=== PATIENT | male | born 1965 | race Caucasian/White ===

== ENCOUNTER 2016-04-06 | Outpatient (CLI) | payer MEDICAID | END 2016-04-06 14:26 | disposition EMS.NT ==

== ENCOUNTER 2017-04-14 12:59 | Emergency (ER) | payer MEDICAID ==
[2017-04-14] MEDS ORDERED: HYDROmorphone 1 MG/ML SYRINGE IVP STA (13:16)
[2017-04-14] MEDS ORDERED: KETOROLAC 60 MG/2 ML VIAL IVP STA (13:16)
--- NOTE | 2017-04-14 13:19 | ED Physician Documentation ---
PD HPI DYSPNEA - Stated complaint Stated Complaint: DIFFICULTY BREATHING/UNABLE TO STAND - Chief complaint Chief Complaint: Cardiac - History obtained from History obtained from: Patient - History of Present Illness Timing - onset: Other (For the last 4 days he has had right foot pain similar to prior gout or plantar fasciitis, today he has left foot pain, it is debilitating in that now that both feet hurt he really cannot walk. He also has a day worth of productive cough with wheezing and shortness of breath but no fevers. There is no calf pain or history of cardiac or pulmonary disease.) Review of Systems Constitutional: denies: Fever, Chills Cardiac: denies: Chest pain / pressure, Palpitations, Pedal edema, Calf pain Respiratory: reports: Dyspnea, Cough, Wheezing. denies: Hemoptysis GI: denies: Abdominal Pain PD PAST MEDICAL HISTORY - Past Medical History Cardiovascular: None Respiratory: None Neuro: Peripheral neuropathy Endocrine/Autoimmune: None GI: None : None HEENT: None Psych: None Musculoskeletal: None Derm: None - Past Surgical History Past Surgical History: Yes Ortho: Spine surgery - Present Medications Home Medications: Ambulatory Orders Medication Instructions Recorded Confirmed Amitriptyline HCl 0 04/14/17 Cyclobenzaprine [Flexeril] 0 04/14/17 Doxycycline Hyclate 100 mg PO BID #14 tablet 04/14/17 HYDROcod/ACETAM 5/325 [[place] 5/325] 1 - 2 ea PO Q6H PRN #15 tablet 04/14/17 Meloxicam [Mobic] 7.5 mg PO BIDWM PRN #15 tablet 04/14/17 amLODIPine [Norvasc] 0 04/14/17 - Allergies Allergies/Adverse Reactions: Allergies Allergy/AdvReac Type Severity Reaction Status Date / Time No Known Drug Allergies Allergy Verified 11/11/14 18:35 - Living Situation Living Situation: reports: Alone Living Arrangement: reports: At home - Social History Does the pt smoke?: Yes Smoking Status: Current every day smoker Does the pt drink ETOH?: Yes Does the pt have substance abuse?: No - Family History Family history: reports: Non contributory - Immunizations Immunizations are current?: No - POLST Patient has POLST: No PD ED PE NORMAL - Vitals Vital signs reviewed: Yes (tachycardic, hypertensive) - General General: Alert and oriented X 3, No acute distress - HEENT HEENT: PERRL, EOMI - Neck Neck: Supple, no meningeal sign, No bony TTP - Cardiac Cardiac: RRR, No murmur - Respiratory Respiratory: Other (Mildly diminished and rhonchorous throughout, nonlabored) - Abdomen Abdomen: Soft, Non tender - Extremities Extremities: Other (Significant swelling especially of the dorsal lateral right foot and redness there and a lot of pain with range of motion of the foot. Left foot is grossly normal. There is no calf tenderness or swelling.) - Neuro Neuro: Alert and oriented X 3, Normal speech - Psych Psych: Normal mood, Normal affect Results - Vitals Vitals: Vital Signs - 24 hr 04/14/17 04/14/17 13:04 13:49 Temperature 36.8 C Heart Rate 112 H 100 Respiratory 18 14 Rate Blood Pressure 172/92 H 151/87 H O2 Saturation 99 93 Oxygen O2 Source Room air - EKG (time done) 1308 Rate: Rate (enter#) (102) Rhythm: Sinus tachycardia Intervals: LBBB Other comments: Other comments (Negative Sgarbossa criteria, the patient says he has never had an EKG before.) Computer interpretation: Agree with computer - Labs Labs: Laboratory Tests 04/14/17 04/14/17 04/14/17 13:20 13:20 13:20 WBC 12.1 H RBC 3.68 L Hgb 11.7 L Hct 34.7 L MCV 94.2 H MCH 31.8 H MCHC 33.7 RDW 12.8 Plt Count 246 MPV 8.9 Neut # 9.9 H Lymph # 1.0 L Mcdonald # 0.9 Eos # 0.2 Baso # 0.1 Absolute Nucleated RBC 0.00 Nucleated RBC % 0.0 ESR 90 H Sodium 135 Potassium 3.2 L Chloride 98 L Carbon Dioxide 20 L Anion Gap 17.0 H BUN 9 Creatinine 0.9 Estimated GFR (MDRD) 89 Glucose 199 H Uric Acid 8.0 H Calcium 9.6 Total Bilirubin 0.6 AST 63 H ALT 33 Alkaline Phosphatase 124 H Troponin I C-Reactive Protein 11.5 H Total Protein 8.5 H Albumin 3.9 Globulin 4.6 H Albumin/Globulin Ratio 0.8 L Lipase 20 L 04/14/17 13:20 WBC RBC Hgb Hct MCV MCH MCHC RDW Plt Count MPV Neut # Lymph # Mcdonald # Eos # Baso # Absolute Nucleated RBC Nucleated RBC % ESR Sodium Potassium Chloride Carbon Dioxide Anion Gap BUN Creatinine Estimated GFR (MDRD) Glucose Uric Acid Calcium Total Bilirubin AST ALT Alkaline Phosphatase Troponin I < 0.04 C-Reactive Protein Total Protein Albumin Globulin Albumin/Globulin Ratio Lipase - Rads (name of study) B feet XRs Radiology: EMP read contemporaneously (Periarticular erosions in the right foot consistent with a synovitis such as gout.) 2v chest Radiology: EMP read contemporaneously (NAD) PD MEDICAL DECISION MAKING - ED course ED course: 51-year-old gentleman presents with bilateral foot pain, likely gout of the tarsal metatarsals which is corroborated by findings on x-ray and elevated uric acid level. He also has other lab abnormalities, he does drink heavily, more heavily than he told the nurse. This probably explains the hypokalemia and mild transaminitis. He was advised to cut back on alcohol. He also complains of bronchitis type symptoms, that has been going on for about 4 weeks so a trial of antibiotics is reasonable especially with elevated inflammatory markers present. Departure - Departure Disposition: 01 Home, Self Care Clinical Impression: Elevated liver enzymes, Left bundle branch block, Bronchitis Gout Qualifiers: Gout site: multiple sites Gout etiology: idiopathic Chronicity: acute Qualified Code(s): M10.09 - Idiopathic gout, multiple sites Condition: Good Record reviewed to determine appropriate education?: Yes Instructions: ED Arthritis Gout, ED Diet Gout, ED Bronchitis Asthmatic Prescriptions: Doxycycline Hyclate 100 mg PO BID #14 tablet HYDROcod/ACETAM 5/325 [[place] 5/325] 1 - 2 ea PO Q6H PRN #15 tablet PRN Reason: Pain Meloxicam [Mobic] 7.5 mg PO BIDWM PRN #15 tablet PRN Reason: Pain Comments: Return if worse or if new symptoms develop, especially fever. Or if pain is uncontrolled. Follow-up with your physician, next available appointment to discuss further treatments for gout, consideration for allopurinol starting in 4 -6 weeks. Also discussed with her That we found a left bundle branch block on your EKG today of unclear chronicity, no prior EKGs are available.
[2017-04-14 13:56] LABS: ALBUMIN 3.9 g/dL (3.2-5.5); ALBUMIN/GLOBULIN RATIO 0.8 (1.0-2.2); BILIRUBIN,TOTAL 0.6 mg/dL (0.2-1.0); CALCIUM 9.6 mg/dL (8.5-10.3); CREATININE 0.9 mg/dL (0.6-1.2); CRP - C-REACTIVE PROTEIN 11.5 mg/dL (0-1.0); TOTAL PROTEIN 8.5 g/dL (6.7-8.2)
[2017-04-14 14:06] LABS: BASOPHILS # (AUTO) 0.1 10^3/uL (0.0-0.1); BASOPHILS % (AUTO) 1.1 %; EOSINOPHILS # (AUTO) 0.2 10^3/uL (0.0-0.7); EOSINOPHILS % (AUTO) 1.5 %; HGB - HEMOGLOBIN 11.7 g/dL (14.0-18.0); LYMPHOCYTES % (AUTO) 8.3 %; MEAN CORPUSCULAR HEMOGLOBIN 31.8 pg (27.0-31.0); MEAN CORPUSCULAR HGB CONC 33.7 g/dL (32.0-36.0); MEAN CORPUSCULAR VOLUME 94.2 fL (80.0-94.0); MEAN PLATELET VOLUME 8.9 fL (7.4-11.4); MONOCYTES # (AUTO) 0.9 10^3/uL (0.0-1.0); NEUTROPHILS # (AUTO) 9.9 10^3/uL (1.5-6.6); NEUTROPHILS % (AUTO) 82.1 %; PLT - PLATELET COUNT 246 10^3/uL (130-450); RED BLOOD COUNT 3.68 10^6/uL (4.70-6.10); RED CELL DISTRIBUTION WIDTH 12.8 % (12.0-15.0); WHITE BLOOD COUNT 12.1 x10^3/uL (4.8-10.8)
--- NOTE | 2017-04-14 14:12 | XRAY Preliminary Report ---
Exam: XR FOOT 3 VIEW BILAT IMPRESSION: 1. No acute bony abnormality. 2. Periarticular erosions at the right third and fourth tarsometatarsal joints as well as at the left fifth metatarsal styloid. These nonspecific findings would be consistent with a synovitis such as mi ght be seen with gout. 3. Moderate right and mild left foot edema. [facility] SITE ID: [id number]
--- NOTE | 2017-04-14 14:14 | XRAY Preliminary Report ---
Exam: XR CHEST 2 VIEW X-RAY IMPRESSION: Normal 2-view chest radiography. [facility] SITE ID: [id number]
[2017-04-14] MEDS ORDERED: POTASSIUM CHLORIDE 20 MEQ TABLET PO STA (14:18)
--- NOTE | 2017-04-14 14:20 | XRAY Report ---
EXAM: CHEST RADIOGRAPHY EXAM DATE: 04/14/2017 01:48 PM. CLINICAL HISTORY: Dyspnea, cough for several weeks. COMPARISON: None. TECHNIQUE: 2 views. FINDINGS: Lungs/Pleura: No focal opacities evident. No pleural effusion. No pneumothorax. Normal volumes. Mediastinum: Heart and mediastinal contours are unremarkable. Other: None. IMPRESSION: Normal 2-view chest radiography. [facility] Referring Provider Line: [phone] SITE ID: [id number]
--- NOTE | 2017-04-14 14:20 | XRAY Report ---
EXAMS: 1. RIGHT FOOT RADIOGRAPHY 2. LEFT FOOT RADIOGRAPHY EXAM DATE: 04/14/2017 01:49 PM. CLINICAL HISTORY: Bilateral foot pain, right greater than left, erythema and edema. History of gout. No precipitating injury. COMPARISON: None. TECHNIQUE: 3 views each foot. FINDINGS: Right: Bones: Normal. No fractures or bone lesions. Joints: Several 6 mm periarticular erosions with small rim of sclerosis involving the bases of the th ird and fourth metatarsals. No ankle effusion. Soft Tissues: Moderate diffuse edema. Left: Bones: Normal. No fractures or bone lesions. Joints: Several 4 mm and smaller subcortical erosions with sclerotic rims of the styloid process fift h metatarsal. No ankle effusion. Soft Tissues: Mild forefoot edema. IMPRESSION: 1. No acute bony abnormality. 2. Periarticular erosions at the right third and fourth tarsometatarsal joints as well as at the left fifth metatarsal styloid. These nonspecific findings would be consistent with synovitis such as migh t be seen with gout. 3. Moderate right and mild left foot edema. [facility] Referring Provider Line: [phone] SITE ID: [id number]
[2017-04-14] MEDS ORDERED: COLCHICINE 0.6 MG TABLET PO STA (14:42)
[2017-04-14] MEDS ORDERED: DOXYCYCLINE 100 MG TABLET PO STA (14:48)
[2017-04-14 15:13] VITALS: BP 139/88
== END 2017-04-14 15:16 | disposition home or self-care (01) ==
LOC: ED 12:59
DX: I44.7 Left bundle-branch block, unspecified (principal); R94.31 Abnormal electrocardiogram [ECG] [EKG]; J40 Bronchitis, not specified as acute or chronic; M10.072 Idiopathic gout, left ankle and foot; M10.071 Idiopathic gout, right ankle and foot; R74.8 Abnormal levels of other serum enzymes; G62.9 Polyneuropathy, unspecified; F17.200 Nicotine dependence, unspecified, uncomplicated
CPT/HCPCS: 36415; 71046; 73630; 80053; 83690; 84484; 84550; 85025; 85651; 86140; 93005; 96374; 96375; 99283; 99284; A9270; J1170

== ENCOUNTER 2017-05-11 17:04 | Emergency (ER) | payer MEDICAID ==
[2017-05-11] MEDS ORDERED: HYDROcod/ACETAM 5/325 MG TABLET PO STA (19:19)
[2017-05-11] MEDS ORDERED: MELOXICAM 7.5 MG TABLET PO STA (19:19)
--- NOTE | 2017-05-11 19:22 | ED Physician Documentation ---
PD HPI LOWER EXT INJURY - Stated complaint Stated Complaint: L FOOT PX/TINGLING - Chief complaint Chief Complaint: Ext Problem - History obtained from History obtained from: Patient - History of Present Illness PD HPI LOW EXT INJURY LOCATION: Other (51-year-old gentleman with history of gout presents with 2-3 days of increasingly painful left ankle with some numbness in the foot distal to this. He can barely walk. There is no associated fever or other joint pain currently.) Review of Systems Constitutional: denies: Fever, Chills Respiratory: reports: Reviewed and negative GI: reports: Reviewed and negative : reports: Reviewed and negative PD PAST MEDICAL HISTORY - Past Medical History Cardiovascular: None Respiratory: None Neuro: Peripheral neuropathy Endocrine/Autoimmune: None GI: None : None HEENT: None Psych: None Musculoskeletal: None Derm: None - Past Surgical History Past Surgical History: Yes Ortho: Spine surgery - Present Medications Home Medications: Ambulatory Orders Medication Instructions Recorded Confirmed Amitriptyline HCl 0 04/14/17 Cyclobenzaprine [Flexeril] 0 04/14/17 Doxycycline Hyclate 100 mg PO BID #14 tablet 04/14/17 HYDROcod/ACETAM 5/325 [[place] 5/325] 1 - 2 ea PO Q6H PRN #15 tablet 04/14/17 Meloxicam [Mobic] 7.5 mg PO BIDWM PRN #15 tablet 04/14/17 amLODIPine [Norvasc] 0 04/14/17 HYDROcod/ACETAM 5/325 [[place] 5/325] 1 - 2 ea PO Q6H PRN #15 tablet 05/11/17 Meloxicam [Mobic] 7.5 mg PO BIDWM PRN #15 tablet 05/11/17 - Allergies Allergies/Adverse Reactions: Allergies Allergy/AdvReac Type Severity Reaction Status Date / Time No Known Drug Allergies Allergy Verified 05/11/17 17:29 - Social History Does the pt smoke?: Yes Smoking Status: Current every day smoker Does the pt drink ETOH?: Yes Does the pt have substance abuse?: No - Immunizations Immunizations are current?: No - POLST Patient has POLST: No PD ED PE NORMAL - Vitals Vital signs reviewed: Yes - General General: Alert and oriented X 3, No acute distress - Extremities Extremities: Other (Right ankle is warm and he has a lot of pain with flexion but not extension. There is no neurovascular compromise in the foot.) - Neuro Neuro: Alert and oriented X 3, Normal speech - Psych Psych: Normal mood, Normal affect Results - Vitals Vitals: Vital Signs - 24 hr 05/11/17 05/11/17 05/11/17 17:25 19:24 19:40 Temperature 37.1 C 37.8 C H Heart Rate 105 H 78 84 Respiratory 18 17 16 Rate Blood Pressure 139/92 H 155/84 H O2 Saturation 100 97 Oxygen O2 Source Room air - EKG (time done) 1934 Rate: Rate (enter#) (85) Rhythm: NSR Intervals: LBBB Computer interpretation: Agree with computer PD MEDICAL DECISION MAKING - ED course ED course: This gentleman with a history of gout is afebrile and presents with apparent gout flare in the left ankle for which he is treated, he requested the same medications he got last time. Departure - Departure Clinical Impression: Gout Qualifiers: Gout site: ankle Gout etiology: idiopathic Chronicity: acute Laterality: left Qualified Code(s): M10.072 - Idiopathic gout, left ankle and foot Condition: Good Record reviewed to determine appropriate education?: Yes Instructions: ED Arthritis Gout, ED Diet Gout Prescriptions: HYDROcod/ACETAM 5/325 [[place] 5/325] 1 - 2 ea PO Q6H PRN #15 tablet PRN Reason: Pain Meloxicam [Mobic] 7.5 mg PO BIDWM PRN #15 tablet PRN Reason: Pain Comments: Talk with your doctor about starting allopurinol in 6-8 weeks to prevent further gout flares.
[2017-05-11 19:41] VITALS: BP 155/84
== END 2017-05-11 20:00 | disposition home or self-care (01) ==
LOC: ED 17:04
DX: M10.072 Idiopathic gout, left ankle and foot (principal); M10.9 Gout, unspecified; G62.9 Polyneuropathy, unspecified; I44.7 Left bundle-branch block, unspecified; F17.200 Nicotine dependence, unspecified, uncomplicated
CPT/HCPCS: 93005; 99283; A9270

== ENCOUNTER 2017-07-07 12:48 | Emergency (ER) | payer MEDICAID ==
[2017-07-07] MEDS ORDERED: KETOROLAC 60 MG/2 ML VIAL IM STA (13:55)
[2017-07-07] MEDS ORDERED: HYDROmorphone 2 MG/ML VIAL IM STA (13:55)
--- NOTE | 2017-07-07 13:57 | ED Physician Documentation ---
History of Present Illness - Stated complaint Stated Complaint: FOOT PX - Chief complaint Chief Complaint: Ext Problem - History obtained from History obtained from: Patient - History of Present Illness Timing: Other (51-year-old gentleman with recurrent gout presents with a couple days worth of pain especially the left foot consistent with prior gout, extreme sensitivity there. No fevers or chills.) Review of Systems Constitutional: denies: Fever, Chills GI: denies: Abdominal Pain, Nausea, Diarrhea : denies: Dysuria PD PAST MEDICAL HISTORY - Past Medical History Cardiovascular: None Respiratory: None Neuro: Peripheral neuropathy Endocrine/Autoimmune: None GI: None : None HEENT: None Psych: None Musculoskeletal: None Derm: None - Past Surgical History Past Surgical History: Yes Ortho: Spine surgery - Present Medications Home Medications: Ambulatory Orders Medication Instructions Recorded Confirmed Amitriptyline HCl 0 04/14/17 Cyclobenzaprine [Flexeril] 0 04/14/17 Doxycycline Hyclate 100 mg PO BID #14 tablet 04/14/17 HYDROcod/ACETAM 5/325 [[place] 5/325] 1 - 2 ea PO Q6H PRN #15 tablet 04/14/17 Meloxicam [Mobic] 7.5 mg PO BIDWM PRN #15 tablet 04/14/17 amLODIPine [Norvasc] 0 04/14/17 HYDROcod/ACETAM 5/325 [[place] 5/325] 1 - 2 ea PO Q6H PRN #15 tablet 05/11/17 Meloxicam [Mobic] 7.5 mg PO BIDWM PRN #15 tablet 05/11/17 HYDROcod/ACETAM 5/325 [[place] 5/325] 1 - 2 ea PO Q6H PRN #15 tablet 07/07/17 Indomethacin [Indocin] 25 mg PO BIDWM #10 capsule 07/07/17 - Allergies Allergies/Adverse Reactions: Allergies Allergy/AdvReac Type Severity Reaction Status Date / Time No Known Drug Allergies Allergy Verified 05/11/17 17:29 - Social History Does the pt smoke?: Yes Smoking Status: Current every day smoker Does the pt drink ETOH?: Yes Does the pt have substance abuse?: No - Immunizations Immunizations are current?: No - POLST Patient has POLST: No PD ED PE NORMAL - Vitals Vital signs reviewed: Yes - General General: Alert and oriented X 3, No acute distress - Extremities Extremities: Other (Left foot is warm but not really hot or red, especially pain and tenderness of the ankle and First MTP.) - Neuro Neuro: Alert and oriented X 3, Normal speech Results - Vitals Vitals: Vital Signs - 24 hr 07/07/17 12:54 Temperature 36.8 C Heart Rate 107 H Respiratory 18 Rate Blood Pressure 148/98 H O2 Saturation 100 Oxygen O2 Source Room air Departure - Departure Disposition: 01 Home, Self Care Clinical Impression: Gout Qualifiers: Gout site: foot Gout etiology: idiopathic Chronicity: acute Laterality: left Qualified Code(s): M10.072 - Idiopathic gout, left ankle and foot Condition: Good Record reviewed to determine appropriate education?: Yes Instructions: Gout, Gout Eat Prevent Prescriptions: HYDROcod/ACETAM 5/325 [[place] 5/325] 1 - 2 ea PO Q6H PRN #15 tablet PRN Reason: Pain Indomethacin [Indocin] 25 mg PO BIDWM #10 capsule Comments: Call your doctor to arrange a follow-up appointment, make the next available appointment. In the interim, return anytime if worse or if new symptoms develop. Do not drink or drive while taking narcotic pain medication. Note that many narcotic pain relievers also contain Tylenol/acetaminophen. Please ensure that your total dose of acetaminophen from all sources does not exceed 3 g (3000 mg) per day. You may get constipated while on this medication. Take a stool softener such as Colace twice a day while you are on it. Also add an [id number] laxative such as senna or MiraLAX on any day that you do not have a bowel movement. If you received a narcotic pain medication or sedative while in the emergency department, do not drive for the next 24 hours. Your blood pressure was elevated today on check into the emergency department. This does not mean that you have hypertension, it is a common phenomenon to come to the emergency department and have elevated blood pressure. I recommend that you see your primary care physician within the week to have it rechecked when you are feeling better.
[2017-07-07 14:45] VITALS: BP 146/91
== END 2017-07-07 14:51 | disposition home or self-care (01) ==
LOC: ED 12:48
DX: M10.072 Idiopathic gout, left ankle and foot (principal); G62.9 Polyneuropathy, unspecified; R03.0 Elevated blood-pressure reading, without diagnosis of hypertension; F17.200 Nicotine dependence, unspecified, uncomplicated
CPT/HCPCS: 96372; 99283; J1170

== ENCOUNTER 2017-10-15 17:12 | Emergency (ER) | payer MEDICAID ==
[2017-10-15 17:28] VITALS: BP 136/78
[2017-10-15] MEDS ORDERED: LIDOCAINE 1%-EPI 1:100000 30 ML MDV TD STA (17:42)
--- NOTE | 2017-10-15 17:45 | ED Physician Documentation ---
History of Present Illness - Stated complaint Stated Complaint: LEFT EYEBROW LAC - Chief complaint Chief Complaint: Laceration - Additonal information Additional information: hx from pt 51 male lost balance weed whacking and fell suffering a lac to L eyebrow no LOC no CHEN no neck pain (prior fusion but did not reinjure it today) no new numbness or weakness (has pre-existing L arm numbness) no vision changes no blood thinners Review of Systems Ears: denies: Drainage/discharge Nose: denies: Epistaxis Musculoskeletal: denies: Neck pain Neurologic: reports: Head injury. denies: Focal weakness, Numbness (none new), Headache Endocrine: denies: Easy bruising / bleeding PD PAST MEDICAL HISTORY - Past Medical History Cardiovascular: None Respiratory: None Endocrine/Autoimmune: None GI: None : None HEENT: None Psych: None Musculoskeletal: None Derm: None - Past Surgical History Past Surgical History: Yes Ortho: Spine surgery - Present Medications Home Medications: Ambulatory Orders Medication Instructions Recorded Confirmed No Known Home Medications [No 10/15/17 10/15/17 Known Home Medications] - Allergies Allergies/Adverse Reactions: Allergies Allergy/AdvReac Type Severity Reaction Status Date / Time No Known Drug Allergies Allergy Verified 10/15/17 17:23 - Social History Does the pt smoke?: Yes Smoking Status: Current every day smoker Does the pt drink ETOH?: Yes Does the pt have substance abuse?: No - Immunizations Immunizations are current?: No - POLST Patient has POLST: No PD ED PE NORMAL - Vitals Vital signs reviewed: Yes - Neck Neck: No bony TTP - Cardiac Cardiac: RRR - Respiratory Respiratory: No respiratory distress, Clear bilaterally - Derm Derm: Other (3 cm lac through L eyebrow, no bony orbit TTP, EOMI no proptosis, no hyphema) - Neuro Neuro: Alert and oriented X 3, purchasing and fiscal clerk 2-12 intact, No motor deficit, Normal speech. No: No sensory deficit (per pt baseline) Eye Opening: Spontaneous Motor: Obeys Commands Verbal: Oriented GCS Score: 15 Results - Vitals Vitals: Vital Signs - 24 hr 10/15/17 17:20 Temperature 36.6 C Heart Rate 101 H Respiratory 16 Rate Blood Pressure 136/78 H O2 Saturation 97 Oxygen O2 Source Room air Procedures - Laceration (location) eyebrow Length in cm: 3 Wound type: Linear Neurovascular status: Sensory intact, Motor intact Tendon involvement: Tendon intact Anesthesia: Lidocaine 1% with epi Wound Preparation: Irrigated copiously NS (by nursing), Wound explored, To the base. No: FB identified Skin layer closure: Nylon, Interrupted, Size #-0 - enter number (5), Sutures - enter # (6) Other: Patient tolerated well, No complications, Neurovascular intact, Dressing applied, Tetanus UTD Complexity: Simple PD MEDICAL DECISION MAKING - Sepsis Event Vital Signs: Vital Signs - 24 hr 10/15/17 17:20 Temperature 36.6 C Heart Rate 101 H Respiratory 16 Rate Blood Pressure 136/78 H O2 Saturation 97 Oxygen O2 Source Room air Departure - Departure Disposition: 01 Home, Self Care Clinical Impression: Laceration Condition: Good Instructions: ED Laceration Facial Sutr Tape, ED Head Injury Closed, ED Scar Tips to Minimize Comments: Keep the wound clean - may shower but no swimming Apply antibiotic ointment twice a day Sutures out 5-7 days - your PMD can probably do this, else come back to the ER Your brain and spine seems fine and I don't think you need a CT scanbut please read over the head injury precautions and return if worse in any way
== END 2017-10-15 19:31 | disposition home or self-care (01) ==
LOC: ED 17:12
DX: S01.112A Laceration without foreign body of left eyelid and periocular area, initial encounter (principal); W18.30XA Fall on same level, unspecified, initial encounter; Y93.H2 Activity, gardening and landscaping; Y92.096 Garden or yard of other non-institutional residence as the place of occurrence of the external cause; F17.200 Nicotine dependence, unspecified, uncomplicated
CPT/HCPCS: 12013; 99281; 99283

== ENCOUNTER 2017-10-22 12:20 | Emergency (ER) | payer MEDICAID ==
[2017-10-22 12:34] VITALS: BP 164/88
--- NOTE | 2017-10-22 12:54 | ED Physician Documentation ---
PD HPI WOUND RECHECK - Stated complaint Stated Complaint: LF EYE BROW SUTURE REMOVAL - Chief complaint Chief Complaint: General - Histroy obtained from History obtained from: Patient - History of Present Illness Location: Face Timing - onset: How many days ago (7) Associated symptoms: No: Fever, Redness, Swelling, Drainage, Pain Similar symptoms before: Diagnosis (laceration) Recently seen: Emergency Dept (7 days ago) - Additional information Additional information: 51-year-old male fell while weed eating [address] Reveles here for some sutures to his left eyebrow and is here now today for suture removal. He has had no complaints and the wound appears to be healing well. Review of Systems Constitutional: denies: Fever Eyes: denies: Decreased vision Ears: denies: Ear pain Nose: denies: Congestion Throat: denies: Sore throat Respiratory: denies: Cough GI: denies: Vomiting Skin: reports: Laceration (s). denies: Rash Musculoskeletal: denies: Neck pain, Back pain Neurologic: denies: Generalized weakness, Focal weakness, Numbness PD PAST MEDICAL HISTORY - Past Medical History Past Medical History: No Cardiovascular: None Respiratory: None Endocrine/Autoimmune: None GI: None : None HEENT: None Psych: None Musculoskeletal: None Derm: None - Past Surgical History Past Surgical History: Yes Ortho: Spine surgery - Present Medications Home Medications: Ambulatory Orders Medication Instructions Recorded Confirmed No Known Home Medications [No 10/15/17 10/15/17 Known Home Medications] - Allergies Allergies/Adverse Reactions: Allergies Allergy/AdvReac Type Severity Reaction Status Date / Time No Known Drug Allergies Allergy Verified 10/22/17 12:33 - Social History Does the pt smoke?: Yes Smoking Status: Current every day smoker Does the pt drink ETOH?: Yes Does the pt have substance abuse?: No - Immunizations Immunizations are current?: Yes Immunizations: TDAP current <10years - POLST Patient has POLST: No PD ED PE NORMAL - Vitals Vital signs reviewed: Yes (hypertensive) - General General: Alert and oriented X 3, No acute distress, Well developed/nourished - HEENT HEENT: PERRL, EOMI, Other (There is a healing laceration to the left eyebrow without signs of inflammation) - Respiratory Respiratory: No respiratory distress - Neuro Neuro: Alert and oriented X 3, community recreation coordinator 2-12 intact, No motor deficit, No sensory deficit, Normal speech Eye Opening: Spontaneous Motor: Obeys Commands Verbal: Oriented GCS Score: 15 - Psych Psych: Normal mood, Normal affect Results - Vitals Vitals: Vital Signs - 24 hr 10/22/17 12:31 Temperature 36.8 C Heart Rate 91 Respiratory 20 Rate Blood Pressure 164/88 H O2 Saturation 98 Oxygen O2 Source Room air Procedures - Suture/staple Removal (location) left eyebrow Suture/staple removal: # sutures, No complications, Other (placed steri strips) PD MEDICAL DECISION MAKING - ED course Complexity details: reviewed old records, considered differential, d/w patient ED course: 51-year-old male with a healing laceration to left eyebrow has a sutures removed and Steri-Strips placed. Tolerates this well expect complete recovery. - Sepsis Event Vital Signs: Vital Signs - 24 hr 10/22/17 12:31 Temperature 36.8 C Heart Rate 91 Respiratory 20 Rate Blood Pressure 164/88 H O2 Saturation 98 Oxygen O2 Source Room air Departure - Departure Disposition: 01 Home, Self Care Clinical Impression: Encounter for removal of sutures Condition: Stable
== END 2017-10-22 12:57 | disposition home or self-care (01) ==
LOC: ED 12:20
DX: S01.112D Laceration without foreign body of left eyelid and periocular area, subsequent encounter (principal); X58.XXXD Exposure to other specified factors, subsequent encounter; F17.209 Nicotine dependence, unspecified, with unspecified nicotine-induced disorders
CPT/HCPCS: 99282

== ENCOUNTER 2018-02-06 08:00 | Outpatient (CLI) | payer MEDICAID ==
[2018-02-06 18:54] LABS: BASOPHILS # (AUTO) 0.1 10^3/uL (0.0-0.1); BASOPHILS % (AUTO) 1.1 %; EOSINOPHILS # (AUTO) 0.1 10^3/uL (0.0-0.7); EOSINOPHILS % (AUTO) 1.2 %; HGB - HEMOGLOBIN 13.8 g/dL (14.0-18.0); LYMPHOCYTES # (AUTO) 1.4 10^3/uL (1.5-3.5); LYMPHOCYTES % (AUTO) 15.5 %; MEAN CORPUSCULAR HEMOGLOBIN 32.8 pg (27.0-31.0); MEAN CORPUSCULAR HGB CONC 33.5 g/dL (32.0-36.0); MEAN CORPUSCULAR VOLUME 97.8 fL (80.0-94.0); MEAN PLATELET VOLUME 9.8 fL (7.4-11.4); MONOCYTES # (AUTO) 0.4 10^3/uL (0.0-1.0); MONOCYTES % (AUTO) 4.5 %; NEUTROPHILS # (AUTO) 7.1 10^3/uL (1.5-6.6); NEUTROPHILS % (AUTO) 77.7 %; PLT - PLATELET COUNT 319 10^3/uL (130-450); RED BLOOD COUNT 4.21 10^6/uL (4.70-6.10); WHITE BLOOD COUNT 9.1 x10^3/uL (4.8-10.8)
[2018-02-06 19:16] LABS: ALBUMIN 4.5 g/dL (3.2-5.5); ALBUMIN/GLOBULIN RATIO 1.3 (1.0-2.2); ALKALINE PHOSPHATASE 131 IU/L (42-121); ALT ALANINE AMINOTRANSFERASE 57 IU/L (10-60); AST ASPARTATE AMINOTRANSFERASE 62 IU/L (10-42); BILIRUBIN,TOTAL 0.9 mg/dL (0.2-1.0); BUN - BLOOD UREA NITROGEN 8 mg/dL (6-20); CALCIUM 9.2 mg/dL (8.5-10.3); CARBON DIOXIDE - CO2 21 mmol/L (21-32); CHLORIDE 104 mmol/L (101-111); CHOLESTEROL 239 mg/dL; GFR - MDRD 78 (>89); GLUCOSE 179 mg/dL (70-100); HDL CHOLESTEROL 48 mg/dL; SODIUM 136 mmol/L (135-145); TOTAL PROTEIN 8.1 g/dL (6.7-8.2)
[2018-02-06 19:37] LABS: LDL CHOLESTEROL,DIRECT 90 mg/dL; LDLD/HDL RATIO 1.9 (<3.6)
== END 2018-02-06 23:59 | disposition home or self-care (01) ==
LOC: LAB.N 08:00
PROVIDERS: ATTEND Nurse Practitioner Gerontology
DX: Z13.9 Encounter for screening, unspecified (principal); I10 Essential (primary) hypertension; F10.20 Alcohol dependence, uncomplicated
CPT/HCPCS: 36415; 80053; 80061; 83721; 84443; 85025

== ENCOUNTER 2018-02-16 10:31 | Outpatient (CLI) | payer MEDICAID ==
[2018-02-16 15:46] LABS: HB2 TOTAL 13.1 g/dL; HEMOGLOBIN A1C 0.63 g/dL; HEMOGLOBIN A1C % 6.6 % (4.6-6.2)
== END 2018-02-16 23:59 | disposition home or self-care (01) ==
LOC: LAB.N 10:31
PROVIDERS: ATTEND Nurse Practitioner Gerontology
DX: F10.20 Alcohol dependence, uncomplicated (principal); E11.9 Type 2 diabetes mellitus without complications
CPT/HCPCS: 36415; 82607; 83036

== ENCOUNTER 2018-06-09 11:27 | Emergency (ER) | payer MEDICAID, MEDICARE ==
[2018-06-09 11:38] VITALS: BP 142/85
[2018-06-09] MEDS ORDERED: DEXAMETHASONE 10 MG/ML VIAL PO STA (11:52)
[2018-06-09] MEDS ORDERED: KETOROLAC 60 MG/2 ML VIAL IM STA (11:52)
--- NOTE | 2018-06-09 11:59 | ED Physician Documentation ---
PD HPI BACK PAIN - Stated complaint Stated Complaint: BACK PX - Chief complaint Chief Complaint: Back Pain - History obtained from History obtained from: Patient - History of Present Illness Timing - onset: Chronic Timing - duration: Years (3) Timing - details: Gradual onset Pain level max: 8 Pain level now: 8 Location: Lower, Right, Left Quality: Pain, Spasm, Sharp, Similar to prior episodes Associated symptoms: No: Fever, Weakness, Numbness, Incontinent of urine, Unable to urinate, Hematuria, Incontinent of stool Improves with: Rest Worsened by: Movement, Lifting, Twisting, Palpation Contributing factors: Other (has been sleeping in his jeep). No: Lifting, Twisting, Trauma, Anticoagulated, Cancer, IVDA Similar symptoms before: Diagnosis (chronic low back pain s/p work injury 3 years ago.) Recently seen: Not recently seen Review of Systems Ten Systems: 10 systems reviewed and negative Constitutional: denies: Fever, Chills Nose: denies: Rhinorrhea / runny nose, Congestion Throat: denies: Sore throat Cardiac: denies: Chest pain / pressure Respiratory: denies: Cough GI: denies: Abdominal Pain, Nausea, Vomiting, Diarrhea : denies: Dysuria, Frequency, Hesitancy, Incontinent Skin: denies: Rash Musculoskeletal: denies: Neck pain Neurologic: denies: Focal weakness, Numbness PD PAST MEDICAL HISTORY - Past Medical History Cardiovascular: None Respiratory: None Endocrine/Autoimmune: None GI: None : None HEENT: None Psych: None Musculoskeletal: None Derm: None - Past Surgical History Past Surgical History: Yes Ortho: Spine surgery - Present Medications Home Medications: Ambulatory Orders Medication Instructions Recorded Confirmed Amitriptyline [Elavil] 10 mg PO 06/09/18 06/09/18 Cyclobenzaprine [Flexeril] 10 mg PO TID PRN #20 tablet 06/09/18 Hydrocodone/Acetaminophen 1 - 2 each PO Q6H PRN #14 tablet 06/09/18 [Hydrocodon-Acetaminophen 5-325] Lisinopril 40 mg PO 06/09/18 Meloxicam [Mobic] 15 mg PO DAILY PRN #20 tablet 06/09/18 metFORMIN [Glucophage] 500 mg PO BIDWM 06/09/18 06/09/18 predniSONE [Deltasone] 10 mg PO [id number] #42 tab 06/09/18 - Allergies Allergies/Adverse Reactions: Allergies Allergy/AdvReac Type Severity Reaction Status Date / Time No Known Drug Allergies Allergy Verified 06/09/18 11:33 - Social History Does the pt smoke?: Yes Smoking Status: Current every day smoker Does the pt drink ETOH?: Yes Does the pt have substance abuse?: No - Immunizations Immunizations are current?: Yes Immunizations: TDAP current <10years - POLST Patient has POLST: No PD ED PE NORMAL - Vitals Vital signs reviewed: Yes - General General: Alert and oriented X 3, No acute distress, Well developed/nourished - HEENT HEENT: PERRL, Moist mucous membranes - Neck Neck: Supple, no meningeal sign - Cardiac Cardiac: RRR - Respiratory Respiratory: No respiratory distress, Clear bilaterally - Abdomen Abdomen: Soft, Non tender, Non distended - Back Back: No spinal TTP (No midline tenderness to palpation or percussion. There is paraspinal spasm bilateral low lumbar) - Derm Derm: Warm and dry - Extremities Extremities: Normal ROM s pain, No edema, No calf tenderness / cord, Other (Normal bilateral lower extremity patellar and ankle jerk reflexes. Normal great toe extension bilaterally. no saddle anesthesia) - Neuro Neuro: Alert and oriented X 3, No motor deficit, No sensory deficit - Psych Psych: Normal mood, Normal affect Results - Vitals Vitals: Vital Signs - 24 hr 06/09/18 11:31 Temperature 37 C Heart Rate 115 H Respiratory 20 Rate Blood Pressure 142/85 H O2 Saturation 100 Oxygen O2 Source Room air PD MEDICAL DECISION MAKING - ED course Complexity details: considered differential (No cauda equina, no spinal epidural abscess, no fracture, no aortic dissection or evidence of aneursym rupture), d/w patient ED course: Patient presents to the emergency department with what appears to be recurrent sciatica. Will place on pain medication for home and follow-up with his doctor. We will also place on steroids. Ambulating well in the emergency department. No evidence of cauda equina. No trauma. Patient counseled regarding signs and symptoms for which I believe and urgent re-evaluation would be necessary. Patient with good understanding of and agreement to plan and is comfortable going home at this time This document was made in part using voice recognition software. While efforts are made to proofread this document, sound alike and grammatical errors may occur. Departure - Departure Disposition: Home, Self Care Clinical Impression: Sciatica Qualifiers: Laterality: unspecified laterality Qualified Code(s): M54.30 - Sciatica, unspecified side Condition: Good Instructions: ED Sciatica Follow-Up: Valery Walter ARNP [Primary Care Provider] - Within 1 week Prescriptions: Cyclobenzaprine [Flexeril] 10 mg PO TID PRN #20 tablet PRN Reason: Spasms Hydrocodone/Acetaminophen [Hydrocodon-Acetaminophen 5-325] 1 - 2 each PO Q6H PRN #14 tablet PRN Reason: pain Meloxicam [Mobic] 15 mg PO DAILY PRN #20 tablet PRN Reason: pain predniSONE [Deltasone] 10 mg PO [id number] #42 tab Comments: Use the medications as prescribed. Follow-up with your doctor for further care. You may benefit from a repeat MRI and/or physical therapy on your back. Do not drink alcohol or drive while on narcotic pain medicine. Note that many narcotic pain relievers also contain tylenol/acetaminophen. Please ensure that your total dose of acetaminophen from all sources does not exceed 3 grams (3000mg) per day. You may constipated on this medication, take a stool softener such as "Colace" twice a day while you are on it. Also recommend a smaa-ide-khlqwsq laxative such as senna or MiraLAX any day that you do not have a bowel movement. If you received narcotic pain medication in the emergency department, do not drive or operate machinery for the next 24 hours. Discharge Date/Time: 06/09/18 12:08
[2018-06-09] MEDS ORDERED: CHERRY SYRUP 10 ML UDC PO ONE (12:00)
== END 2018-06-09 12:08 | disposition home or self-care (01) ==
LOC: ED 11:27
DX: M54.40 Lumbago with sciatica, unspecified side (principal); F17.200 Nicotine dependence, unspecified, uncomplicated
CPT/HCPCS: 96372; 99283; A9270

== ENCOUNTER 2018-09-21 17:58 | Outpatient (CLI) | payer OTHER, MEDICARE, MEDICAID ==
--- NOTE | 2018-09-22 15:36 | MRI Report ---
Reason: ROTATOR CUFF SYNDROME,LEFT Procedure Date: 09/21/2018 Accession Number: [id number] / [id number] Procedure: MRI - Shoulder LT W/O CPT Code: FULL RESULT: EXAM: LEFT SHOULDER MRI WITHOUT CONTRAST EXAM DATE: 09/21/2018 07:21 PM. CLINICAL HISTORY: Rotator cuff syndrome, left. COMPARISON: None. TECHNIQUE: Multiplanar, multisequence T1-weighted and fluid-sensitive sequences of the shoulder without contrast. Other: None. FINDINGS: Rotator Cuff: There is moderate thickening and increased T2 signal involving distal fibers of the infraspinatus and some posterior fibers of the supraspinatus. No rotator cuff tear identified. No significant rotator cuff muscle atrophy. Long Head Biceps Tendon: Intact biceps tenodesis. Labrum: Some blunting and truncation of the superior labrum. No discrete labral tear demonstrated. Bones and Articular Surfaces: Mild cartilage thinning and surface irregularity in the glenohumeral joint. Mild degenerative change at the acromioclavicular joint. Type II acromion. Trace fluid in the subacromial/subdeltoid bursa. IMPRESSION: 1. Moderate infraspinatus greater than supraspinatus tendinosis. 2. Intact biceps tenodesis. 3. Mild glenohumeral and acromioclavicular osteoarthritis. RADIA
== END 2018-09-21 17:59 | disposition home or self-care (01) ==
LOC: DI 17:58
PROVIDERS: ATTEND Nurse Practitioner Gerontology
DX: M75.102 Unspecified rotator cuff tear or rupture of left shoulder, not specified as traumatic (principal); M75.82 Other shoulder lesions, left shoulder; M19.012 Primary osteoarthritis, left shoulder

== ENCOUNTER 2018-10-20 17:53 | Outpatient (CLI) | payer OTHER, MEDICARE, MEDICAID ==
--- NOTE | 2018-10-21 03:11 | MRI Report ---
Reason: BACK PAIN, CHRONIC Procedure Date: 10/20/2018 Accession Number: [id number] / [id number] Procedure: MRI - Lumbar Spine W/O CPT Code: FULL RESULT: EXAM: MRI LUMBAR SPINE WITHOUT CONTRAST EXAM DATE: 10/20/2018 07:08 PM. CLINICAL HISTORY: BACK PAIN, CHRONIC. COMPARISON: None. TECHNIQUE: Multiplanar, multisequence T1-weighted and fluid-sensitive sequences of the lumbar spine from T12 to S1 without contrast. Other: None. FINDINGS: Spinal Canal: The conus terminates at L1-L2. The conus medullaris and cauda equina are unremarkable. Alignment: No scoliosis or spondylolisthesis. Bone Marrow: Five eme-pzu-horuyvg lumbar vertebral bodies are assumed. No gross fractures or bone lesions. No bone marrow replacement. Disk Levels/Facets: T12-L1: Unremarkable. L1-L2: Unremarkable. L2-L3: Minimal disk space narrowing, loss of T2 signal within the disk space. Minimal bulging disk. No significant appearing central or foraminal stenosis. L3-L4: Mild disk space narrowing. Minimal bulging disk. No significant appearing central or foraminal stenosis. L4-L5: Mild disk space narrowing. Bulging disk. Bilateral facet and ligamentum flavum hypertrophy. Mild central stenosis. Severe right-sided foraminal stenosis. L5-S1: Moderate disk space narrowing. Disk/endplate osteophyte complex mildly narrows the central canal. Bilateral facet and ligamentum flavum hypertrophy. Severe bilateral foraminal stenosis, left greater than right. Musculature: Normal. No edema or fatty atrophy. Other: The partially visualized retroperitoneum is unremarkable. IMPRESSION: 1. Mild degenerative changes involving the disk spaces at L2-L3 and L3-L4 without significant appearing central or foraminal stenosis. 2. Degenerative changes with mild central stenosis at L4-L5. Severe right-sided foraminal stenosis, correlate with right L4 symptoms. 3. Mild central stenosis at L5-S1. Severe bilateral foraminal stenosis, left greater than right. Correlate with L5 symptoms. Comment: The following findings are so common in adults without low back pain that while we report their presence, they must be interpreted with caution and in the context of the clinical situation. (Reference Natashak et al, Spine 2001) Prevalence of findings in patients without low back pain: Disk degeneration (any evidence): 92% Disk desiccation/T2 signal loss: 83% Disk height loss: 56% Disk bulge: 64% Disk protrusion: 32% Annular tear/high intensity zone: 38% RADIA
== END 2018-10-20 17:54 | disposition home or self-care (01) ==
LOC: DI 17:53
PROVIDERS: ATTEND Physician Assistant Medical
DX: M51.36 Other intervertebral disc degeneration, lumbar region (principal); M48.061 Spinal stenosis, lumbar region without neurogenic claudication; M47.816 Spondylosis without myelopathy or radiculopathy, lumbar region; M51.37 Other intervertebral disc degeneration, lumbosacral region; M48.07 Spinal stenosis, lumbosacral region; M47.817 Spondylosis without myelopathy or radiculopathy, lumbosacral region
CPT/HCPCS: 72148

== ENCOUNTER 2018-11-28 14:52 | Outpatient (CLI) | payer MEDICARE, MEDICAID ==
[2018-11-28 15:13] LABS: BASOPHILS # (AUTO) 0.1 10^3/uL (0.0-0.1); BASOPHILS % (AUTO) 0.7 %; EOSINOPHILS # (AUTO) 0.6 10^3/uL (0.0-0.7); EOSINOPHILS % (AUTO) 7.8 %; HGB - HEMOGLOBIN 11.9 g/dL (14.0-18.0); LYMPHOCYTES # (AUTO) 2.1 10^3/uL (1.5-3.5); LYMPHOCYTES % (AUTO) 27.2 %; MEAN CORPUSCULAR HEMOGLOBIN 33.3 pg (27.0-31.0); MEAN CORPUSCULAR HGB CONC 34.4 g/dL (32.0-36.0); MEAN CORPUSCULAR VOLUME 96.9 fL (80.0-94.0); MEAN PLATELET VOLUME 9.1 fL (7.4-11.4); MONOCYTES # (AUTO) 0.5 10^3/uL (0.0-1.0); MONOCYTES % (AUTO) 6.4 %; NEUTROPHILS # (AUTO) 4.3 10^3/uL (1.5-6.6); NEUTROPHILS % (AUTO) 57.2 %; PLT - PLATELET COUNT 260 10^3/uL (130-450); RED BLOOD COUNT 3.57 10^6/uL (4.70-6.10); RED CELL DISTRIBUTION WIDTH 11.9 % (12.0-15.0); WHITE BLOOD COUNT 7.5 x10^3/uL (4.8-10.8)
[2018-11-28 15:34] LABS: ALBUMIN/GLOBULIN RATIO 1.1 (1.0-2.2); ALKALINE PHOSPHATASE 83 IU/L (42-121); ALT ALANINE AMINOTRANSFERASE 42 IU/L (10-60); AST ASPARTATE AMINOTRANSFERASE 48 IU/L (10-42); BILIRUBIN,TOTAL 0.4 mg/dL (0.2-1.0); BUN - BLOOD UREA NITROGEN 13 mg/dL (6-20); CALCIUM 9.9 mg/dL (8.5-10.3); CARBON DIOXIDE - CO2 25 mmol/L (21-32); CHLORIDE 103 mmol/L (101-111); CHOLESTEROL 175 mg/dL; CREATININE 1.1 mg/dL (0.6-1.2); GFR - MDRD 70 (>89); GLUCOSE 110 mg/dL (70-100); HDL CHOLESTEROL 44 mg/dL; LDL CHOLESTEROL,CALCULATED 72 mg/dL; LDL/HDL RATIO 1.6 (<3.6); SODIUM 140 mmol/L (135-145); TOTAL PROTEIN 7.6 g/dL (6.7-8.2); VLDL CHOLESTEROL 59 mg/dL
== END 2018-11-28 14:53 | disposition home or self-care (01) ==
LOC: LAB 14:52
PROVIDERS: ATTEND Internal Medicine Cardiovascular Disease
DX: R00.2 Palpitations (principal); I10 Essential (primary) hypertension; R06.02 Shortness of breath; E78.5 Hyperlipidemia, unspecified
CPT/HCPCS: 36415; 80053; 80061; 83721; 83735; 83880; 84443; 85025

== ENCOUNTER 2019-01-01 15:49 | Outpatient (CLI) | payer MEDICARE, MEDICAID ==
--- NOTE | 2019-01-01 17:03 | XRAY Report ---
Reason: chest pain on breathing Procedure Date: 01/01/2019 Accession Number: [id number] / [id number] Procedure: XRN - Chest 2 View X-Ray CPT Code: 25518 FULL RESULT: EXAM: CHEST RADIOGRAPHY EXAM DATE: 01/01/2019 04:07 PM. CLINICAL HISTORY: Chest pain on breathing. COMPARISON: CHEST 2 VIEW 04/14/2017 1:31 PM. TECHNIQUE: 2 views. FINDINGS: Lungs/Pleura: No focal opacities evident. No pleural effusion. No pneumothorax. Normal volumes. Mediastinum: Heart and mediastinal contours are unremarkable. Other: Mild degenerative change in the thoracic spine. Postsurgical change cervical spine. IMPRESSION: Clear lungs. No acute findings. RADIA
== END 2019-01-01 15:50 | disposition home or self-care (01) ==
LOC: DI.N 15:49
PROVIDERS: ATTEND Nurse Practitioner Gerontology
DX: R07.1 Chest pain on breathing (principal)
CPT/HCPCS: 71046

== ENCOUNTER 2019-02-13 17:50 | Emergency (ER) | payer MEDICARE, MEDICAID ==
--- NOTE | 2019-02-13 20:04 | ED Physician Documentation ---
PD HPI BACK PAIN - Stated complaint Stated Complaint: RT FOOT/LOWER BACK PAIN - PCP REFERRAL - Chief complaint Chief Complaint: Back Pain - History obtained from History obtained from: Patient - History of Present Illness Timing - onset: Today (noted pain in right foot with weight bearing and palpation. Notes pain in back with walking too. Has had low back pain in the past. He had fallen due to foot giving out with pain and landed onto right wrist, with pain there as well.) Timing - duration: Days (1-2 without noted injury to foot itself.) Timing - details: Gradual onset, Still present Location: Lower, Right (the back pain is worse than usual. Has had back pain with prior MRI showing nerve root opening L4 and L5. Does not have prior sciatica per se.) Quality: Sharp, Other Associated symptoms: No: Fever, Weakness, Numbness, Incontinent of urine Worsened by: Movement, Palpation, Other (walking) Contributing factors: No: Lifting, Twisting Similar symptoms before: Has not had sx before (no history of the foot pain previously. Has had the back pain. No prior wrist problem.) Review of Systems Constitutional: denies: Fever, Chills, Myalgias GI: denies: Abdominal Pain, Nausea, Vomiting : denies: Incontinent Musculoskeletal: denies: Neck pain Neurologic: denies: Focal weakness, Numbness PD PAST MEDICAL HISTORY - Past Medical History Past Medical History: Yes Cardiovascular: Other Respiratory: None Endocrine/Autoimmune: None GI: None : None HEENT: None Psych: None Musculoskeletal: Gout Derm: None Other Past Medical History: anemia, LBBB - Past Surgical History Past Surgical History: Yes Ortho: Spine surgery - Present Medications Home Medications: Ambulatory Orders Medication Instructions Recorded Confirmed Amitriptyline [Elavil] 10 mg PO 06/09/18 06/09/18 Cyclobenzaprine [Flexeril] 10 mg PO TID PRN #20 tablet 06/09/18 Hydrocodone/Acetaminophen 1 - 2 each PO Q6H PRN #14 tablet 06/09/18 [Hydrocodon-Acetaminophen 5-325] Lisinopril 40 mg PO 06/09/18 Meloxicam [Mobic] 15 mg PO DAILY PRN #20 tablet 06/09/18 metFORMIN [Glucophage] 500 mg PO BIDWM 06/09/18 06/09/18 predniSONE [Deltasone] 10 mg PO [id number] #42 tab 06/09/18 Naproxen 375 mg PO BID #20 tablet 02/13/19 Oxycodone HCl/Acetaminophen 1 each PO Q6H PRN #25 tablet 02/13/19 [Percocet 5-325 mg Tablet] Tizanidine HCl 4 mg PO TID PRN #25 capsule 02/13/19 dexAMETHasone [Decadron] 4 mg PO DAILY #7 tablet 02/13/19 - Allergies Allergies/Adverse Reactions: Allergies Allergy/AdvReac Type Severity Reaction Status Date / Time No Known Drug Allergies Allergy Verified 02/13/19 18:01 - Social History Does the pt smoke?: Yes Smoking Status: Current every day smoker Does the pt drink ETOH?: Yes Does the pt have substance abuse?: No - Immunizations Immunizations are current?: Yes Immunizations: TDAP current <10years - POLST Patient has POLST: No PD ED PE NORMAL - Vitals Vital signs reviewed: Yes - General General: Alert and oriented X 3, Well developed/nourished, Other (appears in pain) - Back Back: No spinal TTP (tender right lower lumbar muscles at iliac crest area. No rash nor sores. ) - Derm Derm: Normal color, Warm and dry - Extremities Extremities: Other (right wrist with tenderness but no deformity. Tender dorsal. Not at snuffbox. The right foot is tender dorsal anterior. No rash nor redness. No effusion. ) - Neuro Neuro: No motor deficit, No sensory deficit Results - Vitals Vitals: Vital Signs - 24 hr 02/13/19 21:16 Heart Rate 82 Respiratory 18 Rate Blood Pressure 129/69 O2 Saturation 100 Oxygen O2 Source Room air PD MEDICAL DECISION MAKING - ED course Complexity details: reviewed results, considered differential (exac of low back pain, likely without red flags. The foot pain is hurting with walking and is tender to touch dorsum foot, so seems like foot process. Consider gout. Right wrist is obvious sprain from the fall. ), d/w patient Departure - Departure Disposition: 01 Home, Self Care Clinical Impression: Right foot pain, Exacerbation of chronic back pain Right wrist sprain Qualifiers: Encounter type: initial encounter Qualified Code(s): S63.501A - Unspecified sprain of right wrist, initial encounter Condition: Stable Record reviewed to determine appropriate education?: Yes Instructions: ED Low Back Pain Injury, ED Sprain Wrist Follow-Up: Valery Walter ARNP [Primary Care Provider] - Prescriptions: dexAMETHasone [Decadron] 4 mg PO DAILY #7 tablet Naproxen 375 mg PO BID #20 tablet Oxycodone HCl/Acetaminophen [Percocet 5-325 mg Tablet] 1 each PO Q6H PRN #25 tablet PRN Reason: pain Tizanidine HCl 4 mg PO TID PRN #25 capsule PRN Reason: Spasms Comments: Sounds like you may have foot pain going on so possibilities of tendinitis or sprain or even possibly gout given the degree of pain. It does sound like your back pain is exacerbated as well. Your wrist x-rays did not show any fractures so presume a sprain. Use a wrist splint and sling as needed for comfort of that. Progress use as able over the next several days to week and discontinue the wrist splint after a week or so if you are doing well. For the foot, will use anti-inflammatories and muscle relaxant and pain medicine. This will help with the back pain as well. Follow-up with your primary care in the next few days, call for an appointment. Discharge Date/Time: 02/13/19 21:25
[2019-02-13] MEDS ORDERED: ACETAMINOPHEN 325 MG TABLET PO STA (20:25)
[2019-02-13] MEDS ORDERED: METHOCARBAMOL 500 MG TABLET PO STA (20:25)
[2019-02-13] MEDS ORDERED: oxyCODONE/ACET 5/325 Prepack 4 PO STA (20:25)
[2019-02-13] MEDS ORDERED: DEXAMETHASONE 10 MG/ML VIAL PO STA (20:25)
[2019-02-13] MEDS ORDERED: KETOROLAC 60 MG/2 ML VIAL IM STA (20:25)
[2019-02-13] MEDS ORDERED: CHERRY SYRUP 10 ML UDC PO ONE (20:25)
--- NOTE | 2019-02-13 20:28 | XRAY Report ---
Reason: GLF, pain Procedure Date: 02/13/2019 Accession Number: [id number] / [id number] Procedure: XR - Wrist 3 View RT CPT Code: Final Report FULL RESULT: EXAM: RIGHT WRIST RADIOGRAPHY EXAM DATE: 02/13/2019 07:55 PM. CLINICAL HISTORY: Level fall with wrist pain. COMPARISON: None. TECHNIQUE: 3 views. FINDINGS: Bones: No acute fracture. No suspicious osseous lesion. Joints: No significant joint space narrowing. No dislocation. Other: None. IMPRESSION: No acute osseous abnormality. RADIA
--- NOTE | 2019-02-13 20:33 | XRAY Report ---
Reason: low back pain Procedure Date: 02/13/2019 Accession Number: [id number] / [id number] Procedure: XR - Lumbar Spine 2 View CPT Code: Final Report FULL RESULT: EXAM: LUMBOSACRAL SPINE RADIOGRAPHY EXAM DATE: 02/13/2019 07:54 PM. CLINICAL HISTORY: Low back pain. COMPARISONS: None. TECHNIQUE: 2 views. FINDINGS: Alignment: Mild levoscoliosis of the lumbar spine with Shah angle of 3 degrees which may be secondary to positioning. Bones: Five xrx-buv-rqxjefo lumbar vertebral bodies are present. No fractures or bone lesions. Disks: Mild to moderate multilevel degenerative disk disease, most notably at L4-L5 and L5-S1. Facets: Moderate facet joint arthropathy at L4-L5 and L5-S1. Sacroiliac Joints: Unremarkable. Soft Tissues: Normal. The visualized bowel gas pattern is normal. IMPRESSION: 1. No acute fractures or malalignment. 2. Mild to moderate multilevel degenerative disk disease, most notably at L4-L5 and L5-S1. Moderate facet arthropathy at L4-L5 and L5-S1. 3. Mild levoscoliosis of the lumbar spine which may be positional. RADIA
[2019-02-13 21:17] VITALS: BP 129/69
== END 2019-02-13 21:25 | disposition home or self-care (01) ==
LOC: ED 17:50
DX: M79.671 Pain in right foot (principal); G89.29 Other chronic pain; M54.5 Low back pain; S63.501A Unspecified sprain of right wrist, initial encounter; W19.XXXA Unspecified fall, initial encounter; F17.200 Nicotine dependence, unspecified, uncomplicated
CPT/HCPCS: 72100; 73110; 96372; 99284; A9270

== ENCOUNTER 2019-08-17 08:00 | Outpatient (CLI) | payer MEDICARE, MEDICAID ==
[2019-08-17 18:47] LABS: BASOPHILS # (AUTO) 0.1 10^3/uL (0.0-0.1); BASOPHILS % (AUTO) 0.6 %; EOSINOPHILS # (AUTO) 0.1 10^3/uL (0.0-0.7); HGB - HEMOGLOBIN 11.4 g/dL (14.0-18.0); LYMPHOCYTES # (AUTO) 1.1 10^3/uL (1.5-3.5); LYMPHOCYTES % (AUTO) 10.2 %; MEAN CORPUSCULAR HEMOGLOBIN 31.8 pg (27.0-31.0); MEAN CORPUSCULAR VOLUME 96.4 fL (80.0-94.0); MEAN PLATELET VOLUME 11.4 fL (7.4-11.4); MONOCYTES # (AUTO) 0.8 10^3/uL (0.0-1.0); NEUTROPHILS # (AUTO) 8.2 10^3/uL (1.5-6.6); NEUTROPHILS % (AUTO) 79.8 %; PLT - PLATELET COUNT 192 10^3/uL (130-450); RED BLOOD COUNT 3.58 10^6/uL (4.70-6.10); RED CELL DISTRIBUTION WIDTH 12.8 % (12.0-15.0); WHITE BLOOD COUNT 10.3 x10^3/uL (4.8-10.8)
[2019-08-17 18:49] LABS: HEMOGLOBIN A1C 0.5 g/dL
[2019-08-17 19:01] LABS: CALCIUM 9.2 mg/dL (8.5-10.3); CREATININE 1.2 mg/dL (0.6-1.2); URIC ACID 9.7 mg/dL (2.6-7.2)
[2019-08-17 19:06] LABS: CREATININE,URINE 276.4 mg/dL; MICROALBUM/CREATININE RATIO,UR 4.7 ug/mg (<30.0); MICROALBUMIN,URINE 1.3 mg/dL (0-300.0)
== END 2019-08-17 08:01 | disposition home or self-care (01) ==
LOC: LAB.WCP 08:00
PROVIDERS: ATTEND Family Medicine
DX: E11.9 Type 2 diabetes mellitus without complications (principal); M10.9 Gout, unspecified; D64.9 Anemia, unspecified
CPT/HCPCS: 36415; 80048; 82043; 82570; 83036; 84550; 85025

== ENCOUNTER 2019-08-19 16:39 | Emergency (ER) | payer MEDICARE, MEDICAID ==
[2019-08-19] MEDS ORDERED: COLCHICINE 0.6 MG TABLET PO STA (17:06)
[2019-08-19] MEDS ORDERED: KETOROLAC 60 MG/2 ML VIAL IM STA (17:06)
[2019-08-19] MEDS ORDERED: CHERRY SYRUP 10 ML UDC PO ONE (17:06)
[2019-08-19] MEDS ORDERED: DEXAMETHASONE 10 MG/ML VIAL PO STA (17:06)
[2019-08-19] MEDS ORDERED: oxyCODONE 5 MG TABLET PO STA (17:07)
--- NOTE | 2019-08-19 17:10 | ED Physician Documentation ---
History of Present Illness - Stated complaint Stated Complaint: LOWER BACK PX, BILAT FOOT PX - GOUT - Chief complaint Chief Complaint: Back Pain - History obtained from History obtained from: Patient, Family - History of Present Illness Timing: Today Pain level max: 9 Pain level now: 9 - Additonal information Additional information: 53-year-old male presents to the emergency department with chronic low back pain, right-sided. History of spinal stenosis. Worse with movement and better with rest. No loss of bowel or bladder control. No numbness or tingling. Also complains of pain in the bilateral feet. States that he is been told he has gout in the past and that this feels similar to that. Worse with movement and better with rest. No fevers. No IV drug use. No trauma. Review of Systems Constitutional: denies: Fever, Chills GI: denies: Vomiting, Diarrhea Skin: denies: Rash Musculoskeletal: denies: Neck pain Neurologic: denies: Focal weakness, Numbness, Headache PD PAST MEDICAL HISTORY - Past Medical History Cardiovascular: Other Respiratory: None Endocrine/Autoimmune: None GI: None : None HEENT: None Psych: None Musculoskeletal: Gout Derm: None - Past Surgical History Past Surgical History: Yes Ortho: Spine surgery - Present Medications Home Medications: Ambulatory Orders Medication Instructions Recorded Confirmed Amitriptyline [Elavil] 10 mg PO 06/09/18 06/09/18 Cyclobenzaprine [Flexeril] 10 mg PO TID PRN #20 tablet 06/09/18 Hydrocodone/Acetaminophen 1 - 2 each PO Q6H PRN #14 tablet 06/09/18 [Hydrocodon-Acetaminophen 5-325] Meloxicam [Mobic] 15 mg PO DAILY PRN #20 tablet 06/09/18 lisinopriL [Lisinopril] 40 mg PO 06/09/18 metFORMIN [Glucophage] 500 mg PO BIDWM 06/09/18 06/09/18 predniSONE [Deltasone] 10 mg PO [id number] #42 tab 06/09/18 Naproxen 375 mg PO BID #20 tablet 02/13/19 Oxycodone HCl/Acetaminophen 1 each PO Q6H PRN #25 tablet 02/13/19 [Percocet 5-325 mg Tablet] Tizanidine HCl 4 mg PO TID PRN #25 capsule 12/03/19 dexAMETHasone [Decadron] 4 mg PO DAILY #7 tablet 02/13/19 Cyclobenzaprine [Flexeril] 10 mg PO TID PRN #20 tablet 08/19/19 Hydrocodone/Acetaminophen 1 - 2 each PO Q6H PRN #14 tablet 08/19/19 [Hydrocodon-Acetaminophen 5-325] Meloxicam [Mobic] 15 mg PO DAILY PRN #20 tablet 08/19/19 predniSONE [Prednisone] 40 mg PO DAILY #10 tablet 08/19/19 - Allergies Allergies/Adverse Reactions: Allergies Allergy/AdvReac Type Severity Reaction Status Date / Time No Known Drug Allergies Allergy Verified 02/13/19 18:01 - Social History Does the pt smoke?: Yes Smoking Status: Current every day smoker Does the pt drink ETOH?: Yes Does the pt have substance abuse?: No - Immunizations Immunizations are current?: Yes Immunizations: TDAP current <10years - POLST Patient has POLST: No PD ED PE NORMAL - Vitals Vital signs reviewed: Yes - General General: Alert and oriented X 3, No acute distress, Well developed/nourished - HEENT HEENT: Moist mucous membranes - Neck Neck: Supple, no meningeal sign - Back Back: No spinal TTP, Other (No midline tenderness to palpation or percussion. No step-off or deformity.) - Derm Derm: Warm and dry - Extremities Extremities: Other (Tender to palpation over the first MTP joint of the bilateral feet. No swelling. No erythema. Neurovascular intact) - Neuro Neuro: Alert and oriented X 3, No motor deficit, No sensory deficit, Other (Normal bilateral lower extremity patellar and ankle jerk reflexes. Normal great toe extension bilaterally. no saddle anesthesia) - Psych Psych: Normal mood, Normal affect Results - Vitals Vitals: Vital Signs - 24 hr 08/19/19 08/19/19 16:47 17:26 Temperature 37 C 36.8 C Heart Rate 100 98 Respiratory 16 16 Rate Blood Pressure 110/69 112/65 O2 Saturation 99 99 Oxygen O2 Source Room air PD MEDICAL DECISION MAKING - ED course Complexity details: reviewed results, re-evaluated patient, considered differential (No cauda equina, no spinal epidural abscess, no fracture, no aortic dissection or evidence of aneursym rupture), d/w patient ED course: Patient with symptoms consistent with his prior history of gout as well as sciatica. Will place him on steroids, anti-inflammatories and pain medication for home. Also given a dose of colchicine here. We will have him follow-up with his doctor for further care. Patient counseled regarding signs and symptoms for which I believe and urgent re-evaluation would be necessary. Patient with good understanding of and agreement to plan and is comfortable going home at this time This document was made in part using voice recognition software. While efforts are made to proofread this document, sound alike and grammatical errors may occur. Departure - Departure Disposition: Home, Self Care Clinical Impression: Exacerbation of chronic back pain Gout Qualifiers: Gout site: foot Gout etiology: unspecified cause Chronicity: acute Laterality: unspecified laterality Qualified Code(s): M10.9 - Gout, unspecified Condition: Good Instructions: ED Chronic Pain Management, ED Neck Back Pain General, ED Diet Gout Follow-Up: TOMY BUTLER MD [Primary Care Provider] - Within 1 week Prescriptions: Cyclobenzaprine [Flexeril] 10 mg PO TID PRN #20 tablet PRN Reason: Spasms Hydrocodone/Acetaminophen [Hydrocodon-Acetaminophen 5-325] 1 - 2 each PO Q6H PRN #14 tablet PRN Reason: pain Meloxicam [Mobic] 15 mg PO DAILY PRN #20 tablet PRN Reason: pain predniSONE [Prednisone] 40 mg PO DAILY #10 tablet Comments: Follow-up with your doctor for further care. Drink plenty of water. Your doctor may want to refer you to a landing support specialist for further evaluation of your back. Return if you worsen. Do not drink alcohol or drive while on narcotic pain medicine. Note that many narcotic pain relievers also contain tylenol/acetaminophen. Please ensure that your total dose of acetaminophen from all sources does not exceed 3 grams (3000mg) per day. You may constipated on this medication, take a stool softener such as "Colace" twice a day while you are on it. Also recommend a kewj-enf-egfekza laxative such as senna or MiraLAX any day that you do not have a bowel movement. If you received narcotic pain medication in the emergency department, do not drive or operate machinery for the next 24 hours. Discharge Date/Time: 08/19/19 17:30
[2019-08-19 17:29] VITALS: BP 112/65
== END 2019-08-19 17:30 | disposition home or self-care (01) ==
LOC: ED 16:39
DX: M54.5 Low back pain (principal); G89.29 Other chronic pain; M10.9 Gout, unspecified; F17.200 Nicotine dependence, unspecified, uncomplicated
CPT/HCPCS: 96372; 99283; 99284; A9270

== ENCOUNTER 2019-11-20 15:35 | Emergency (ER) | payer MEDICARE, MEDICAID ==
--- NOTE | 2019-11-20 17:02 | ED Physician Documentation ---
PD HPI UPPER EXT INJURY - Stated complaint Stated Complaint: HAND PX BILAT - Chief complaint Chief Complaint: Heent - History obtained from History obtained from: Patient - History of Present Illness Location: Right (mostly), Left (milder), Wrist (dorsal aspects) Type of injury: No: Fall, Twist Timing - onset: How many days ago (3) Timing - duration: Days (3) Improved by: No: Rest Worsened by: Moving, Palpating Associated symptoms: Swelling, Discolored (red). No: Weakness, Numbness Similar symptoms before: Has not had sx before (not on hands but has had gout on foot in the past.) Review of Systems Constitutional: denies: Fever, Chills Nose: denies: Rhinorrhea / runny nose, Congestion Throat: denies: Sore throat Respiratory: denies: Cough GI: denies: Nausea, Vomiting, Diarrhea Skin: denies: Lesions Neurologic: denies: Focal weakness, Numbness PD PAST MEDICAL HISTORY - Past Medical History Cardiovascular: Other Respiratory: None Endocrine/Autoimmune: None GI: None : None HEENT: None Psych: None Musculoskeletal: Gout Derm: None - Past Surgical History Past Surgical History: Yes Ortho: Spine surgery - Present Medications Home Medications: Ambulatory Orders Medication Instructions Recorded Confirmed Amitriptyline [Elavil] 10 mg PO 06/09/18 06/09/18 lisinopriL [Lisinopril] 40 mg PO 06/09/18 metFORMIN [Glucophage] 500 mg PO BIDWM 06/09/18 06/09/18 Tizanidine HCl 4 mg PO TID PRN #25 capsule 02/13/19 Colchicine 0.6 mg PO BID #10 capsule 11/20/19 Oxycodone HCl/Acetaminophen 1 each PO Q6H PRN #20 tablet 11/20/19 [Percocet 5-325 mg Tablet] dexAMETHasone [Decadron] 4 mg PO DAILY #5 tablet 11/20/19 - Allergies Allergies/Adverse Reactions: Allergies Allergy/AdvReac Type Severity Reaction Status Date / Time No Known Drug Allergies Allergy Verified 11/20/19 15:45 - Social History Does the pt smoke?: Yes Smoking Status: Current every day smoker Does the pt drink ETOH?: Yes Does the pt have substance abuse?: No - Immunizations Immunizations are current?: Yes Immunizations: TDAP current <10years - POLST Patient has POLST: No PD ED PE NORMAL - Vitals Vital signs reviewed: Yes - General General: Alert and oriented X 3, Well developed/nourished, Other (appears in pain of the hands.) - Cardiac Cardiac: RRR, No murmur - Respiratory Respiratory: Clear bilaterally - Derm Derm: Normal color, Warm and dry - Extremities Extremities: Other (both dorsal wrists with redness and marked tenderness, right more than left. ) - Neuro Neuro: Alert and oriented X 3, No motor deficit, No sensory deficit, Normal speech Results - Vitals Vitals: Vital Signs - 24 hr 11/20/19 11/20/19 15:46 18:07 Temperature 37.2 C Heart Rate 113 H 90 Respiratory 16 18 Rate Blood Pressure 119/75 102/74 O2 Saturation 98 100 Oxygen O2 Source Room air PD MEDICAL DECISION MAKING - ED course Complexity details: considered differential (looks like gout), d/w patient Departure - Departure Disposition: 01 Home, Self Care Clinical Impression: Wrist pain Qualifiers: Laterality: bilateral Qualified Code(s): M25.531 - Pain in right wrist Gout attack Qualifiers: Gout site: wrist Gout etiology: idiopathic Laterality: unspecified laterality Qualified Code(s): M10.039 - Idiopathic gout, unspecified wrist Condition: Stable Record reviewed to determine appropriate education?: Yes Instructions: ED Arthritis Gout Prescriptions: Colchicine 0.6 mg PO BID #10 capsule dexAMETHasone [Decadron] 4 mg PO DAILY #5 tablet Oxycodone HCl/Acetaminophen [Percocet 5-325 mg Tablet] 1 each PO Q6H PRN #20 tablet PRN Reason: pain Comments: That seem most likely to be gout. Treated with the Decadron steroid anti- inflammatory and colchicine anti-gout medication. Add Tylenol or oxycodone as needed for pain. Activity as tolerated. I would anticipate improvement over the next several days. Discharge Date/Time: 11/20/19 18:14
[2019-11-20] MEDS ORDERED: CHERRY SYRUP 10 ML UDC PO ONE (17:36)
[2019-11-20] MEDS ORDERED: KETOROLAC 30 MG/ML VIAL IM STA (17:36)
[2019-11-20] MEDS ORDERED: DEXAMETHASONE 10 MG/ML VIAL PO STA (17:36)
[2019-11-20] MEDS ORDERED: MORPHINE 10 MG/ML VIAL IM STA (17:37)
[2019-11-20 18:09] VITALS: BP 102/74
== END 2019-11-20 18:14 | disposition home or self-care (01) ==
LOC: ED 15:35
DX: M25.532 Pain in left wrist (principal); M25.531 Pain in right wrist; M10.032 Idiopathic gout, left wrist; M10.031 Idiopathic gout, right wrist; W18.39XA Other fall on same level, initial encounter
CPT/HCPCS: 96372; 99283; 99284; A9270

== ENCOUNTER 2019-12-08 10:29 | Emergency (ER) | payer MEDICARE, MEDICAID ==
[2019-12-08] MEDS ORDERED: CHERRY SYRUP 10 ML UDC PO ONE (11:28)
[2019-12-08] MEDS ORDERED: KETOROLAC 60 MG/2 ML VIAL IM STA (11:28)
[2019-12-08] MEDS ORDERED: DEXAMETHASONE 10 MG/ML VIAL PO STA (11:28)
--- NOTE | 2019-12-08 11:32 | ED Physician Documentation ---
History of Present Illness - Stated complaint Stated Complaint: RT HAND PX - Chief complaint Chief Complaint: Ext Problem - History obtained from History obtained from: Patient - History of Present Illness Timing: How many days ago (3) - Additonal information Additional information: 54-year-old male with a history of gout has another flare of gout in his right hand today he has most of the pain in his wrist any movement of the wrist or even light touch to the hand causes pain in the wrist. He does not have any issue of trauma to the wrist he does have a history of gout was recently treated about a month ago here for a flare in both hands and treatment of that was successful. Review of Systems Constitutional: denies: Fever Eyes: denies: Decreased vision Ears: denies: Ear pain Nose: denies: Congestion Throat: denies: Sore throat Cardiac: denies: Chest pain / pressure Respiratory: denies: Dyspnea, Cough GI: denies: Abdominal Pain, Nausea, Vomiting : denies: Dysuria, Frequency Skin: denies: Rash Musculoskeletal: reports: Extremity pain, Joint pain. denies: Neck pain, Back pain Neurologic: denies: Generalized weakness, Focal weakness, Numbness PD PAST MEDICAL HISTORY - Past Medical History Past Medical History: Yes Cardiovascular: Hypertension, Other Respiratory: None Endocrine/Autoimmune: None GI: None : None HEENT: None Psych: None Musculoskeletal: Gout Derm: None - Past Surgical History Past Surgical History: Yes Ortho: Rotator cuff repair, Spine surgery - Present Medications Home Medications: Ambulatory Orders Medication Instructions Recorded Confirmed Amitriptyline [Elavil] 10 mg PO DAILY PM 06/09/18 12/08/19 lisinopriL [Lisinopril] 40 mg PO DAILY 06/09/18 12/08/19 metFORMIN [Glucophage] 500 mg PO DAILY 06/09/18 12/08/19 Colchicine 0.6 mg PO BID #10 capsule 12/08/19 Ibuprofen [Advil] 400 mg PO Q6HR PRN 12/08/19 12/08/19 Indomethacin 25 - 50 mg PO Q6HR PRN #30 capsule 12/08/19 Oxycodone HCl/Acetaminophen 1 - 2 each PO Q6H PRN #14 tablet 12/08/19 [Percocet 5-325 mg Tablet] - Allergies Allergies/Adverse Reactions: Allergies Allergy/AdvReac Type Severity Reaction Status Date / Time No Known Drug Allergies Allergy Verified 12/08/19 10:45 - Social History Does the pt smoke?: Yes Smoking Status: Former smoker Does the pt drink ETOH?: Yes ETOH Use: Wine Does the pt have substance abuse?: No - Immunizations Immunizations are current?: Yes Immunizations: TDAP current <10years - POLST Patient has POLST: No PD ED PE NORMAL - Vitals Vital signs reviewed: Yes (tachy and hypertensive) - General General: Alert and oriented X 3, No acute distress, Well developed/nourished - HEENT HEENT: Atraumatic, PERRL, EOMI, Other (54 y/o male holding the right hand supported by abdomen not moving) - Respiratory Respiratory: No respiratory distress - Back Back: No CVA TTP, No spinal TTP - Derm Derm: Normal color, Warm and dry, No rash - Extremities Extremities: No deformity, Other (The patient is holding the right wrist still over the top of his abdomen. With any light touch over the wrist joint itself there is significant pain with any movement of the joint there is significant pain and guarding. There is no significant swelling or erythema. 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, No motor deficit, No sensory deficit, Normal speech Eye Opening: Spontaneous Motor: Obeys Commands Verbal: Oriented GCS Score: 15 - Psych Psych: Normal mood, Normal affect Results - Vitals Vitals: Vital Signs - 24 hr 12/08/19 12/08/19 10:42 10:56 Temperature 36.7 C 37 C Heart Rate 116 H 102 H Respiratory 16 18 Rate Blood Pressure 136/81 H 134/84 H O2 Saturation 100 98 Oxygen O2 Source Room air PD MEDICAL DECISION MAKING - ED course Complexity details: reviewed old records, considered differential, d/w patient ED course: 54-year-old male with another acute gout attack has never been on any medication for suppression of gout. He does have an appointment about 2 weeks with a primary. He had successful treatment previously with anti-inflammatory and colchicine. He states he had a brief course and improved quickly. He has had prior episodes where he had recurrent episodes for about 6 months to both of his feet. Departure - Departure Disposition: 01 Home, Self Care Clinical Impression: Gout attack Qualifiers: Gout site: wrist Gout etiology: unspecified cause Laterality: right Qualified Code(s): M10.9 - Gout, unspecified Condition: Stable Instructions: ED Diet Gout, Gout Attack Tx Follow-Up: TOMY BUTLER MD [Primary Care Provider] - Prescriptions: Indomethacin 25 - 50 mg PO Q6HR PRN #30 capsule PRN Reason: Pain Colchicine 0.6 mg PO BID #10 capsule Oxycodone HCl/Acetaminophen [Percocet 5-325 mg Tablet] 1 - 2 each PO Q6H PRN #14 tablet PRN Reason: pain
[2019-12-08 11:48] VITALS: BP 133/79
== END 2019-12-08 12:10 | disposition home or self-care (01) ==
LOC: ED 10:29
DX: M10.031 Idiopathic gout, right wrist (principal); I10 Essential (primary) hypertension; Z87.891 Personal history of nicotine dependence
CPT/HCPCS: 96372; 99283; A9270

== ENCOUNTER 2020-04-07 13:31 | Outpatient (CLI) | payer MEDICARE, MEDICAID ==
[2020-04-07 18:18] LABS: BASOPHILS # (AUTO) 0.1 10^3/uL (0.0-0.1); BASOPHILS % (AUTO) 0.7 %; EOSINOPHILS # (AUTO) 0.2 10^3/uL (0.0-0.7); EOSINOPHILS % (AUTO) 2.8 %; LYMPHOCYTES # (AUTO) 1.5 10^3/uL (1.5-3.5); LYMPHOCYTES % (AUTO) 20.7 %; MEAN CORPUSCULAR HEMOGLOBIN 31.7 pg (27.0-31.0); MEAN CORPUSCULAR HGB CONC 33.2 g/dL (32.0-36.0); MEAN CORPUSCULAR VOLUME 95.6 fL (80.0-94.0); MEAN PLATELET VOLUME 11.8 fL (7.4-11.4); MONOCYTES # (AUTO) 0.5 10^3/uL (0.0-1.0); MONOCYTES % (AUTO) 6.3 %; NEUTROPHILS # (AUTO) 4.9 10^3/uL (1.5-6.6); NEUTROPHILS % (AUTO) 68.9 %; PLT - PLATELET COUNT 189 10^3/uL (130-450); WHITE BLOOD COUNT 7.1 x10^3/uL (4.8-10.8)
[2020-04-07 18:28] LABS: % IRON SATURATION 16 % (20-50); ALBUMIN 4.3 g/dL (3.2-5.5); ALBUMIN/GLOBULIN RATIO 1.5 (1.0-2.2); ALKALINE PHOSPHATASE 102 IU/L (42-121); ALT ALANINE AMINOTRANSFERASE 67 IU/L (10-60); AST ASPARTATE AMINOTRANSFERASE 58 IU/L (10-42); BILIRUBIN,TOTAL 0.5 mg/dL (0.2-1.0); BUN - BLOOD UREA NITROGEN 11 mg/dL (6-20); CALCIUM 9.5 mg/dL (8.5-10.3); CARBON DIOXIDE - CO2 22 mmol/L (21-32); CHLORIDE 107 mmol/L (101-111); CHOL/HDL RATIO 4.4 (<5.0); CHOLESTEROL 188 mg/dL; GLUCOSE 135 mg/dL (70-100); HDL CHOLESTEROL 43 mg/dL; IRON 69 ug/dL (45-182); LDL CHOLESTEROL,CALCULATED 87 mg/dL; TOTAL IRON BINDING CAPACITY 426 ug/dL (250-450); TOTAL PROTEIN 7.2 g/dL (6.7-8.2); TRANSFERRIN 304 mg/dL (180-329); VLDL CHOLESTEROL 58 mg/dL
[2020-04-07 18:30] LABS: CREATININE,URINE 113.1 mg/dL; MICROALBUM/CREATININE RATIO,UR 3.5 ug/mg (<30.0); MICROALBUMIN,URINE 0.4 mg/dL (0-300.0)
[2020-04-07 18:41] LABS: HEMOGLOBIN A1c% 5.8 % (4.27-6.07)
== END 2020-04-07 23:59 ==
LOC: LAB.WCP 13:31
PROVIDERS: ATTEND Internal Medicine
DX: D64.9 Anemia, unspecified (principal); E11.9 Type 2 diabetes mellitus without complications; Z80.42 Family history of malignant neoplasm of prostate; Z12.5 Encounter for screening for malignant neoplasm of prostate
CPT/HCPCS: 36415; 80053; 80061; 82043; 82570; 82728; 83036; 83540; 84443; 84466; 85025; G0103; 83721; 84153

== ENCOUNTER 2020-05-09 15:25 | Outpatient (CLI) | payer MEDICARE, MEDICAID | END 2020-05-09 15:26 | disposition home or self-care (01) | LOC: COV 15:25 | PROVIDERS: ATTEND Surgery | DX: Z01.812 Encounter for preprocedural laboratory examination (principal); D64.9 Anemia, unspecified; Z72.89 Other problems related to lifestyle; K21.9 Gastro-esophageal reflux disease without esophagitis; E11.9 Type 2 diabetes mellitus without complications; Z20.822 Contact with and (suspected) exposure to COVID-19 ==

== ENCOUNTER 2020-05-13 07:28 | Day surgery (SDC) | payer MEDICARE, MEDICAID ==
[2020-05-13] MEDS ORDERED: LACTATED RINGERS 1,000 ML IV ONE ×2 (08:06→09:57)
--- NOTE | 2020-05-13 08:12 | ANESTHESIA ---
Pre-Anesthesia VS, & Labs - Diagnosis screening - Procedure EGD/Colonoscopy Vital Signs: Temp Pulse Resp BP Pulse Ox 36.2 C L 112 H 16 126/86 H 98 05/13/20 07:35 05/13/20 07:35 05/13/20 07:35 05/13/20 07:35 05/13/20 07:35 Height: 5 ft 7 in Weight (kg): 72 kg Body Mass Index: 24.8 BMI Classification: Healthy weight - NPO >8 hours - Lab Results Current Lab Results: Laboratory Tests 05/13/20 08:05: POC Whole Bld Glucose 142 H Home Medications and Allergies Home Medications: Ambulatory Orders Amlodipine Besylate [Norvasc] 10 mg PO DAILY 05/05/20 Atorvastatin [Lipitor] 20 mg PO QPM 05/05/20 Gabapentin [Neurontin] 300 mg PO HS 05/05/20 Losartan [Cozaar] 50 mg PO DAILY 05/05/20 Metoprolol Tartrate [Lopressor] 25 mg PO DAILY 05/05/20 Omeprazole 40 mg PO DAILY 05/05/20 Gabapentin [Gralise] 300 mg PO DAILY 05/13/20 Amitriptyline [Elavil] 50 - 100 mg PO DAILY PM 06/09/18 metFORMIN [Glucophage] 500 mg PO DAILY 06/09/18 Amlodipine Besylate [Norvasc] 10 mg PO DAILY 05/05/20 Atorvastatin [Lipitor] 20 mg PO QPM 05/05/20 Gabapentin [Neurontin] 300 mg PO HS 05/05/20 Losartan [Cozaar] 50 mg PO DAILY 05/05/20 Metoprolol Tartrate [Lopressor] 25 mg PO DAILY 05/05/20 Omeprazole 40 mg PO DAILY 05/05/20 Gabapentin [Gralise] 300 mg PO DAILY 05/13/20 Allergies/Adverse Reactions: Allergies Allergy/AdvReac Type Severity Reaction Status Date / Time No Known Drug Allergies Allergy Verified 05/13/20 07:53 Anes History & Medical History - Anesthetic History Family history of Anesthesia Complications: Denies Family history of Malignant Hyperthermia: Denies - Medical History Cardiovascular: reports: Hypertension, High cholesterol Pulmonary: reports: None Gastrointestinal: reports: GERD Urinary: reports: None Musculoskeletal: reports: Osteoarthritis, Gout, Chronic back pain Endocrine/Autoimmune: reports: Type 2 diabetes Blood Disorders: reports: None Skin: reports: None Smoking Status: Former smoker History of Cancer?: No - Surgical History Orthopedic: reports: Rotator cuff repair, Spine surgery Exam General: Alert, Oriented x3, Other (anxious) Dental: Other (edentulous) Mouth Openin Fingerbreadth Neck Mobility: Reduced Thyromental Distance: 4-6 cm Respiratory: Lungs clear Cardiovascular: Regular rate Abdomen: Normal bowel sounds Extremities: No clubbing Neurological: Normal gait Mental/Cognitive Status: Alert/Oriented X3 Cognitive Status: Within normal limits Plan Anesthesia Type: MAC Consent for Procedure(s) Verified and Reviewed: Yes Code Status: Attempt Resuscitation ASA classification: 2-Mild systemic disease Is this case an emergency?: No
[2020-05-13] MEDS ORDERED: PROPOFOL 500 MG/50 ML 500 MG/50 ML VIAL ONE (08:59)
[2020-05-13] MEDS ORDERED: LIDOCAINE-MPF 2% 5 ML VIAL ONE (08:59)
[2020-05-13] MEDS ORDERED: MIDAZOLAM 2 MG/2 ML VIAL ONE (08:59)
[2020-05-13 10:05] VITALS: BP 110/76
--- NOTE | 2020-05-13 12:17 | ANESTHESIA POST OP EVALUATION ---
Anesthesia Post Eval - Post Anesthesia Eval Vitals: Last Vital Signs Temp 36.6 C 05/13/20 10:04 Pulse 91 05/13/20 10:04 Resp 14 05/13/20 10:04 BP 110/76 05/13/20 10:04 Pulse Ox 100 05/13/20 10:04 CV Function Including HR & BP: positive: Stable Pain Control: positive: Satisfactory Nausea & Vomiting: positive: Negative Mental Status: positive: Patient Participates Respiratory Status: Airway Patent Hydration Status: Satisfactory Anesthesia Complications: positive: None
== END 2020-05-13 07:29 | disposition home or self-care (01) ==
LOC: SDS 07:28
PROVIDERS: ATTEND Surgery
PROC: 0DB48ZX Excision of Esophagogastric Junction, Via Natural or Artificial Opening Endoscopic, Diagnostic (ICD-10-PCS; principal; 2020-05-13 08:30)
PROC: 0DBN8ZZ Excision of Sigmoid Colon, Via Natural or Artificial Opening Endoscopic (ICD-10-PCS; 2020-05-13 08:30)
DX: D64.9 Anemia, unspecified (principal); K21.00 Gastro-esophageal reflux disease with esophagitis, without bleeding; K29.50 Unspecified chronic gastritis without bleeding; K44.9 Diaphragmatic hernia without obstruction or gangrene; D12.5 Benign neoplasm of sigmoid colon; D12.3 Benign neoplasm of transverse colon; D12.0 Benign neoplasm of cecum; K64.8 Other hemorrhoids; E11.9 Type 2 diabetes mellitus without complications; I10 Essential (primary) hypertension; I44.7 Left bundle-branch block, unspecified; E78.00 Pure hypercholesterolemia, unspecified; F10.20 Alcohol dependence, uncomplicated; M19.90 Unspecified osteoarthritis, unspecified site; M10.9 Gout, unspecified; F41.8 Other specified anxiety disorders; M54.16 Radiculopathy, lumbar region; Z79.84 Long term (current) use of oral hypoglycemic drugs; Z79.1 Long term (current) use of non-steroidal anti-inflammatories (NSAID); Z79.899 Other long term (current) drug therapy; Z87.891 Personal history of nicotine dependence; Z98.1 Arthrodesis status
CPT/HCPCS: 43239; 45385; J7120

== ENCOUNTER 2020-10-01 10:43 | Emergency (ER) | payer MEDICARE, MEDICAID ==
--- NOTE | 2020-10-01 11:21 | ED Physician Documentation ---
PD HPI BACK PAIN - Stated complaint Stated Complaint: BACK/KNEE PX - Chief complaint Chief Complaint: Back Pain - History obtained from History obtained from: Patient - History of Present Illness Timing - onset: How many days ago (3-4) Timing - duration: Days (3-4) Timing - details: Gradual onset, Still present Location: Lower, Left Quality: Pain, Spasm Associated symptoms: No: Fever, Weakness, Numbness Improves with: Rest. No: Meds Worsened by: Movement, Twisting Contributing factors: No: Lifting, Twisting, Trauma Similar symptoms before: Diagnosis (low back pain somewhat regularly and mild with occasional exacerbations in the past.) Recently seen: Not recently seen Review of Systems Constitutional: denies: Fever, Chills Nose: denies: Rhinorrhea / runny nose, Congestion Throat: denies: Sore throat Respiratory: denies: Cough GI: denies: Abdominal Pain, Nausea, Vomiting Skin: denies: Rash, Lesions Musculoskeletal: reports: Back pain. denies: Neck pain Neurologic: denies: Focal weakness, Numbness PD PAST MEDICAL HISTORY - Past Medical History Cardiovascular: Hypertension, High cholesterol Respiratory: None Endocrine/Autoimmune: Type 2 diabetes GI: GERD : None HEENT: Chronic vision loss Psych: Depression, Anxiety, Claustrophobia Musculoskeletal: Osteoarthritis, Gout, Chronic back pain Derm: None - Past Surgical History Past Surgical History: Yes Ortho: Rotator cuff repair, Spine surgery - Present Medications Home Medications: Ambulatory Orders Medication Instructions Recorded Confirmed Amitriptyline [Elavil] 50 - 100 mg PO DAILY PM 06/09/18 05/13/20 metFORMIN [Glucophage] 500 mg PO DAILY 06/09/18 05/13/20 Colchicine 0.6 mg PO BID #10 capsule 12/08/19 05/13/20 Amlodipine Besylate [Norvasc] 10 mg PO DAILY 05/05/20 05/13/20 Atorvastatin [Lipitor] 20 mg PO QPM 05/05/20 05/13/20 Gabapentin [Neurontin] 300 mg PO HS 05/05/20 05/05/20 Losartan [Cozaar] 50 mg PO DAILY 05/05/20 05/13/20 Metoprolol Tartrate [Lopressor] 25 mg PO DAILY 05/05/20 05/13/20 Omeprazole 40 mg PO DAILY 05/05/20 05/13/20 Gabapentin [Gralise] 300 mg PO DAILY 05/13/20 05/13/20 Acetaminophen [Tylenol] 650 mg PO Q6H PRN #100 tablet 10/01/20 dexAMETHasone [Decadron] 4 mg PO DAILY #5 tablet 10/01/20 oxyCODONE [Roxicodone] 5 mg PO Q4-6H PRN #18 tablet 10/01/20 tiZANidine [Zanaflex] 4 mg PO Q8H PRN #25 tablet 10/01/20 - Allergies Allergies/Adverse Reactions: Allergies Allergy/AdvReac Type Severity Reaction Status Date / Time No Known Drug Allergies Allergy Verified 10/01/20 11:07 - Social History Does the pt smoke?: Yes Smoking Status: Former smoker Does the pt drink ETOH?: Yes Does the pt have substance abuse?: No - Immunizations Immunizations are current?: Yes Immunizations: TDAP current <10years - POLST Patient has POLST: No PD ED PE NORMAL - Vitals Vital signs reviewed: Yes - General General: Alert and oriented X 3, Well developed/nourished, Other (seems uncomfortable with guarded ROM of the low back. ) - Cardiac Cardiac: RRR, No murmur - Respiratory Respiratory: Clear bilaterally - Abdomen Abdomen: Soft, Non tender - Back Back: No CVA TTP, No spinal TTP (is tender left paralumbar muscles without rash. There is some focal trigger hurting more than other areas. ) Results - Vitals Vitals: Vital Signs - 24 hr 10/01/20 10/01/20 11:02 12:18 Temperature 37.1 C 37.0 C Heart Rate 111 H 98 Respiratory 16 12 Rate Blood Pressure 149/90 H 147/89 H O2 Saturation 99 100 Oxygen O2 Source Room air PD MEDICAL DECISION MAKING - ED course Complexity details: considered differential (no red flags to suggest need for testing/imaging. ), d/w patient Departure - Departure Disposition: 01 Home, Self Care Clinical Impression: Acute exacerbation of chronic low back pain Condition: Stable Record reviewed to determine appropriate education?: Yes Instructions: ED Low Back Pain Injury Follow-Up: Mario Felipe MD [Primary Care Provider] - Prescriptions: dexAMETHasone [Decadron] 4 mg PO DAILY #5 tablet oxyCODONE [Roxicodone] 5 mg PO Q4-6H PRN #18 tablet PRN Reason: Pain Acetaminophen [Tylenol] 650 mg PO Q6H PRN #100 tablet PRN Reason: PRN PAIN &/OR FEVER tiZANidine [Zanaflex] 4 mg PO Q8H PRN #25 tablet PRN Reason: Spasms Comments: Heat and gentle stretching for the low back to reduce stiffness and spasms. Continue usual medications. Add Decadron steroid daily for 5 days with food to reduce inflammation. Add tizanidine muscle relaxant every 6-8 hours for stiffness and spasms. Use Tylenol 500 to 650 mg 4 times a day. To that add oxycodone every 6 hours if needed for worse pain. The opioid pain medicine is is meant to be short-term to reduce the acute exacerbation. Follow-up with your primary care if not improved well over the next few days. My narcotic instructions I am prescribing a short course of narcotic pain medication for you. These are potentially dangerous and addictive medications that should be used carefully. These medications may constipate you. Take an lxpp-rkr-spdberc stool softener such as docusate twice daily with plenty of water while taking these medications. If you go 24 hours without a bowel movement, take duav-[id number]-rdiaxdn MiraLAX, per package instructions. Do not drink or drive while taking these medications. If you received narcotic or sedating medications while in the emergency department do not drive for 24 hours. Store this medication in a safe, secure place and out of reach of children. It is a violation of federal law to give or sell this medication to another person or to use in a manner other than prescribed. The ED will not refill narcotic prescriptions, including prescriptions lost or stolen. You can dispose of unwanted medications at the [facility] office or at several pharmacies such as [facility]. Discharge Date/Time: 10/01/20 12:25
[2020-10-01] MEDS ORDERED: ACETAMINOPHEN 325 MG TABLET PO STA (11:39)
[2020-10-01] MEDS ORDERED: methocarbamoL 500 MG TABLET PO STA (11:39)
[2020-10-01] MEDS ORDERED: KETOROLAC 15 MG/ML VIAL IM STA (11:39)
[2020-10-01] MEDS ORDERED: CHERRY SYRUP 10 ML UDC PO ONE (11:40)
[2020-10-01] MEDS ORDERED: DEXAMETHASONE 10 MG/ML VIAL PO STA (11:40)
[2020-10-01 12:19] VITALS: BP 147/89
== END 2020-10-01 12:25 | disposition home or self-care (01) ==
LOC: ED 10:43
DX: M54.5 Low back pain (principal); G89.29 Other chronic pain; I10 Essential (primary) hypertension; E11.9 Type 2 diabetes mellitus without complications; Z79.84 Long term (current) use of oral hypoglycemic drugs; Z87.891 Personal history of nicotine dependence
CPT/HCPCS: 96372; 99283; A9270

== ENCOUNTER 2020-12-29 12:02 | Emergency (ER) | payer MEDICARE, MEDICAID ==
[2020-12-29] MEDS ORDERED: KETOROLAC 60 MG/2 ML VIAL IM STA (13:13)
[2020-12-29] MEDS ORDERED: HYDROmorphone 1 MG/ML CARPUJECT IM STA (13:13)
[2020-12-29] MEDS ORDERED: TRIAMCINOLONE 40 MG/ML VIAL IM STA (13:14)
[2020-12-29] MEDS ORDERED: ROPIVACAINE 0.5% PF 30 ML VIAL SUBQ STA (13:14)
--- NOTE | 2020-12-29 13:15 | ED Physician Documentation ---
PD HPI BACK PAIN - Stated complaint Stated Complaint: RT LOW BACK PX - Chief complaint Chief Complaint: Back Pain - History obtained from History obtained from: Patient - Additional information Additional information: 55-year-old gentleman with chronic low back pain presents 3 to 4 days of pain in the right sciatic notch. Pain with weightbearing. Denies saddle anesthesia, weakness, numbness, tingling, incontinence, fevers. Review of Systems Constitutional: denies: Fever, Chills Nose: reports: Reviewed and negative Throat: reports: Reviewed and negative PD PAST MEDICAL HISTORY - Past Medical History Past Medical History: Yes Cardiovascular: Hypertension, High cholesterol Respiratory: None Neuro: None Endocrine/Autoimmune: Type 2 diabetes GI: GERD : None HEENT: Chronic vision loss Psych: Depression, Anxiety, Claustrophobia Musculoskeletal: Osteoarthritis, Gout, Chronic back pain Derm: None - Past Surgical History Past Surgical History: Yes Ortho: Rotator cuff repair, Spine surgery - Present Medications Home Medications: Ambulatory Orders Medication Instructions Recorded Confirmed metFORMIN [Glucophage] 500 mg PO DAILY 06/09/18 12/29/20 Amlodipine Besylate [Norvasc] 10 mg PO DAILY 05/05/20 12/29/20 Atorvastatin [Lipitor] 20 mg PO QPM 05/05/20 12/29/20 Gabapentin [Neurontin] 600 mg PO HS 05/05/20 12/29/20 Losartan [Cozaar] 50 mg PO DAILY 05/05/20 12/29/20 Metoprolol Tartrate [Lopressor] 25 mg PO DAILY 05/05/20 12/29/20 Omeprazole 40 mg PO DAILY 05/05/20 12/29/20 Colchicine 0.6 mg PO DAILY 12/29/20 12/29/20 Oxycodone HCl/Acetaminophen 1 - 2 each PO Q6H PRN #14 tablet 12/29/20 [Percocet 5-325 mg Tablet] predniSONE [Deltasone] 20 mg PO [id number] #21 tab 12/29/20 tiZANidine [Zanaflex] 4 mg PO Q8H PRN #15 tablet 12/29/20 - Allergies Allergies/Adverse Reactions: Allergies Allergy/AdvReac Type Severity Reaction Status Date / Time No Known Drug Allergies Allergy Verified 12/29/20 12:49 - Social History Does the pt smoke?: Yes Smoking Status: Current every day smoker Does the pt drink ETOH?: Yes Does the pt have substance abuse?: No - Immunizations Immunizations are current?: Yes Immunizations: TDAP current <10years - POLST Patient has POLST: No PD ED PE NORMAL - Vitals Vital signs reviewed: Yes - General General: Alert and oriented X 3, Other (Uncomfortable with any motion but comfortable at rest) - Abdomen Abdomen: Normal bowel sounds, Soft, Non tender - Back Back: Other (Midline spinal tenderness but he is tender in the right sciatic notch) - Extremities Extremities: Other (The patient has equal and normal Achilles and patellar reflexes bilaterally. Normal sensation in all areas of the legs. Patient denies saddle anesthesia. Normal strength in flexion-extension at the ankles, knees, and flexion of the hips.) Results - Vitals Vitals: Vital Signs - 24 hr 12/29/20 12/29/20 12:44 14:04 Temperature 36.8 C Heart Rate 94 88 Respiratory 18 16 Rate Blood Pressure 157/83 H 142/104 H O2 Saturation 99 99 Oxygen O2 Source Room air Procedures - General procedure General procedure: Trigger point injection was done in the muscle with area f max Tenderness above the right sciatic notch with 9 mL of liquid 0.5% ropivacaine and 1 mL of 40 mg triamcinolone. PD MEDICAL DECISION MAKING - ED course ED course: This patient has seemingly uncomplicated musculoskeletal back pain. The patient has no "red flags." Specifically denies IV drug use, fevers, incontinence, saddle anesthesia. Spinal epidural abscess was considered, given that the patient has no fever, is not diabetic, has no spinal tenderness, does not use IV drugs, and has no bilateral neurologic symptoms, the diagnosis of spinal epidu ral abscess is considered exceedingly unlikely. I am prescribing a short course of short-acting opioid pain medication for this patient. 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 I have discussed that the opioids are for short term therapy only, and will not be refilled from the ED. Departure - Departure Clinical Impression: Acute exacerbation of chronic low back pain Condition: Good Record reviewed to determine appropriate education?: Yes Instructions: ED Low Back Pain Injury, ED Neck Back Pain General Prescriptions: predniSONE [Deltasone] 20 mg PO [id number] #21 tab Oxycodone HCl/Acetaminophen [Percocet 5-325 mg Tablet] 1 - 2 each PO Q6H PRN #14 tablet PRN Reason: pain tiZANidine [Zanaflex] 4 mg PO Q8H PRN #15 tablet PRN Reason: Spasms Comments: Prescription sent electronically to [facility] pharmacy in [place]. Call your doctor to arrange a follow-up appointment, make the next available appointment. In the interim, return anytime if worse or if new symptoms develop. I am prescribing a short course of narcotic pain medication for you. These are potentially dangerous and addictive medications that should be used carefully. These medications may constipate you. Take an oiav-fkj-qqwptks stool softener (docusate) twice daily with plenty of water while taking these medications. If you go 24 hours without a bowel movement, take xpsm-vds-fdduxtz miralax, per package instructions. Do not drink or drive while taking these medications. If you received narcotic or sedating medications while in the emergency department, do not drive for 24 hours. Store this medication in a safe, secure place and out of reach of children. It is a violation of federal law to give or sell this medication to another person or to use in a manner other than prescribed. The ED will not refill narcotic prescriptions, including prescriptions lost or stolen. To dispose of unwanted medications: 1. [facility] at [address] in [place] has a medication drop box. They accept prescription medications (in pill form) Tuesday through Tuesday 9:00 a.m. to 5:00 p.m. 2. The [facility] [employer] accepts prescription medications (in pill form only) for disposal year round. Call for more information. 3. Contact the [facility] for the next [facility] sponsored prescription drug collection event. , [phone], or [phone]; Note that many narcotic pain relievers also contain Tylenol/acetaminophen. Please ensure that your total dose of acetaminophen from all sources does not exceed 3 g (3000 mg) per day.
[2020-12-29] MEDS ORDERED: ROPIVACAINE 0.5% PF 20 ML AMPULE IU ONE (14:00)
[2020-12-29 14:04] VITALS: BP 142/104
== END 2020-12-29 14:17 | disposition home or self-care (01) ==
LOC: ED 12:02
DX: M54.50 Low back pain, unspecified (principal); G89.29 Other chronic pain; I10 Essential (primary) hypertension; E11.9 Type 2 diabetes mellitus without complications; M19.90 Unspecified osteoarthritis, unspecified site; M10.9 Gout, unspecified; H54.7 Unspecified visual loss; Z79.84 Long term (current) use of oral hypoglycemic drugs; Z79.899 Other long term (current) drug therapy
CPT/HCPCS: 20552; 96372; 99283; J1170

== ENCOUNTER 2021-01-22 08:00 | Outpatient (CLI) | payer MEDICARE, MEDICAID ==
[2021-01-22 18:27] LABS: CREATININE,URINE 170.3 mg/dL; MICROALBUM/CREATININE RATIO,UR 12.3 ug/mg (<30.0); MICROALBUMIN,URINE 2.1 mg/dL (0-300.0)
[2021-01-22 18:29] LABS: BUN - BLOOD UREA NITROGEN 9 mg/dL (6-20); CALCIUM 9.9 mg/dL (8.5-10.3); CARBON DIOXIDE - CO2 24 mmol/L (21-32); CHLORIDE 106 mmol/L (101-111); CHOL/HDL RATIO 5.3 (<5.0); CHOLESTEROL 200 mg/dL; CREATININE 1.1 mg/dL (0.6-1.2); GFR - MDRD 69 (>89); GLUCOSE 166 mg/dL (70-100); HDL CHOLESTEROL 38 mg/dL; POTASSIUM 4.4 mmol/L (3.5-5.0); SODIUM 142 mmol/L (135-145); TRIGLYCERIDES 637 mg/dL; URIC ACID 7.3 mg/dL (2.6-7.2)
[2021-01-22 18:31] LABS: ESTIMATED AVERAGE GLUCOSE 169 mg/dL (70-100); HEMOGLOBIN A1c% 7.5 % (4.27-6.07)
[2021-01-22 19:12] LABS: LDL CHOLESTEROL,DIRECT 59 mg/dL; LDLD/HDL RATIO 1.6 (<3.6)
== END 2021-01-22 23:59 | disposition home or self-care (01) ==
LOC: LAB.WCP 08:00
PROVIDERS: ATTEND Internal Medicine
DX: E11.9 Type 2 diabetes mellitus without complications (principal); N40.0 Benign prostatic hyperplasia without lower urinary tract symptoms; M10.9 Gout, unspecified
CPT/HCPCS: 36415; 80048; 80061; 82043; 82570; 83036; 83721; 84153; 84550

== ENCOUNTER 2021-05-14 12:15 | Outpatient (CLI) | payer MEDICARE, MEDICAID ==
[2021-05-14 12:36] LABS: BASOPHILS % (AUTO) 0.3 %; EOSINOPHILS # (AUTO) 0.1 10^3/uL (0.0-0.7); EOSINOPHILS % (AUTO) 1.2 %; HGB - HEMOGLOBIN 13.1 g/dL (14.0-18.0); LYMPHOCYTES # (AUTO) 1.1 10^3/uL (1.5-3.5); LYMPHOCYTES % (AUTO) 16.9 %; MEAN CORPUSCULAR HGB CONC 33.6 g/dL (32.0-36.0); MEAN CORPUSCULAR VOLUME 92.2 fL (80.0-94.0); MONOCYTES # (AUTO) 0.5 10^3/uL (0.0-1.0); MONOCYTES % (AUTO) 7.3 %; NEUTROPHILS # (AUTO) 4.9 10^3/uL (1.5-6.6); NEUTROPHILS % (AUTO) 73.7 %; PLT - PLATELET COUNT 161 10^3/uL (130-450); RED BLOOD COUNT 4.23 10^6/uL (4.70-6.10); RED CELL DISTRIBUTION WIDTH 12.6 % (12.0-15.0); WHITE BLOOD COUNT 6.7 x10^3/uL (4.8-10.8)
[2021-05-14 12:57] LABS: ESTIMATED AVERAGE GLUCOSE 148 mg/dL (70-100); HEMOGLOBIN A1c% 6.8 % (4.27-6.07)
[2021-05-14 13:06] LABS: ALBUMIN 4.9 g/dL (3.2-5.5); ALBUMIN/GLOBULIN RATIO 1.6 (1.0-2.2); ALKALINE PHOSPHATASE 99 IU/L (42-121); ALT ALANINE AMINOTRANSFERASE 33 IU/L (10-60); AST ASPARTATE AMINOTRANSFERASE 32 IU/L (10-42); BILIRUBIN,TOTAL 0.9 mg/dL (0.2-1.0); BUN - BLOOD UREA NITROGEN 16 mg/dL (6-20); CALCIUM 9.8 mg/dL (8.5-10.3); CARBON DIOXIDE - CO2 23 mmol/L (21-32); CHLORIDE 101 mmol/L (101-111); CHOL/HDL RATIO 4.3 (<5.0); CHOLESTEROL 165 mg/dL; CREATININE 1.2 mg/dL (0.6-1.2); GFR - MDRD 63 (>89); GLUCOSE 133 mg/dL (70-100); HDL CHOLESTEROL 38 mg/dL; LDL CHOLESTEROL,CALCULATED 83 mg/dL; LDL/HDL RATIO 2.2 (<3.6); LIPASE 33 U/L (22-51); POTASSIUM 4.2 mmol/L (3.5-5.0); SODIUM 137 mmol/L (135-145); TRIGLYCERIDES 220 mg/dL; URIC ACID 8.7 mg/dL (2.6-7.2); VLDL CHOLESTEROL 44 mg/dL
[2021-05-14 13:07] LABS: THYROID STIMULATING HORMONE 2.59 uIU/mL (0.34-5.60)
[2021-05-14 13:10] LABS: GLUCOSE, URINE (UA) NEGATIVE (NEGATIVE); KETONES,URINE (UA) 15 mg/dL (NEGATIVE); LEUKOCYTE ESTERASE, URINE NEGATIVE (NEGATIVE); NITRITE,URINE NEGATIVE (NEGATIVE); OCCULT BLOOD,URINE NEGATIVE (NEGATIVE); PH,URINE 5.5 PH (5.0-7.5); PROTEIN,URINE TRACE mg/dL (NEGATIVE); UROBILINOGEN,URINE 0.2 (NORMAL) E.U./dL (NORMAL)
[2021-05-14 13:45] LABS: BILIRUBIN,URINE NEGATIVE (NEGATIVE); CLARITY,URINE CLEAR (CLEAR); ICTOTEST,URINE NEGATIVE
[2021-05-14 13:46] LABS: BACTERIA,URINE None Seen /HPF (None Seen); CASTS, URINE 0-2 Hyaline Casts /LPF; RBC,URINE 0-5 /HPF (0-5); SQUAMOUS EPITHELIAL CELL,UR RARE Squamous (<= Few); WBC,URINE 0-3 /HPF (0-3)
[2021-05-14 13:52] LABS: CREATININE,URINE 389.5 mg/dL; MICROALBUM/CREATININE RATIO,UR 9.8 ug/mg (<30.0); MICROALBUMIN,URINE 3.8 mg/dL (0-300.0)
== END 2021-05-14 12:16 | disposition home or self-care (01) ==
LOC: LAB 12:15
PROVIDERS: ATTEND Internal Medicine
DX: E78.1 Pure hyperglyceridemia (principal); R10.9 Unspecified abdominal pain; E11.9 Type 2 diabetes mellitus without complications; M10.9 Gout, unspecified
CPT/HCPCS: 36415; 80053; 80061; 81001; 82043; 82570; 83036; 83690; 83721; 84443; 84550; 85025; 87086

== ENCOUNTER 2021-05-20 14:58 | Outpatient (CLI) | payer MEDICARE, MEDICAID ==
--- NOTE | 2021-05-20 18:23 | Ultrasound Report ---
PROCEDURE: Abdomen Complete INDICATIONS: ABDOMINAL PAIN TECHNIQUE: Real-time scanning was performed of the abdominal and retroperitoneal organs, with image documentatio n. COMPARISON: None. FINDINGS: Liver: Liver is normal in size. There is increased echogenicity suggesting diffuse hepatic steatosis . Gallbladder: No stones are noted. No gallbladder wall thickening. Incidental 5 mm maximum diameter po lyp. Biliary ducts: Intrahepatic bile ducts are non-dilated. Extrahepatic bile duct caliber measures 3.6 mm. Normal is 6-7 mm or less in diameter, or 10 mm or less post-cholecystectomy. Pancreas: Visualized portions of the pancreas are sonographically normal. Spleen: Spleen is normal in size and homogeneous in echotexture. Kidneys: Kidneys are normal in size and echotexture. Right kidney measures 11.5 cm long; left kidne y measures 10.4 cm long. No hydronephrosis or nephrolithiasis. No solid masses. Aorta: Visualized aorta is normal in caliber at less than 3 cm. Iliacs: Proximal common iliac arteries are normal in caliber at less than 2.5 cm. IVC: Intrahepatic inferior vena cava is patent. Miscellaneous: No free abdominal fluid. IMPRESSION: 1. Diffuse hepatic steatosis. 2. No gallstone disease. 3. Incidental small gallbladder polyp. 4. Otherwise unremarkable study. Reviewed by: Pato Lane MD on 05/20/2021 5:21 PM AKST Approved by: Pato Lane MD on 05/20/2021 5:21 PM AKST Station ID: [id number]
== END 2021-05-20 14:59 | disposition home or self-care (01) ==
LOC: DI 14:58
PROVIDERS: ATTEND Internal Medicine
DX: K76.0 Fatty (change of) liver, not elsewhere classified (principal)

== ENCOUNTER 2021-07-14 11:14 | Emergency (ER) | payer MEDICARE, MEDICAID ==
[2021-07-14] MEDS ORDERED: KETOROLAC 60 MG/2 ML VIAL IM STA (11:44)
--- NOTE | 2021-07-14 11:46 | ED Physician Documentation ---
History of Present Illness - Stated complaint Stated Complaint: LT FOOT/HAND PX - Chief complaint Chief Complaint: Abd Pain - Additonal information Additional information: 55-year-old male comes to the emergency department for a myriad of complaints. 1. He feels that he has a gout flare in his left thumb. It extends from the DIP to the MCP joint. States that this is not typical for where his gout is. He also is expressing pain in both his feet which is typical for his gout. He is on colchicine daily. He denies any falls or trauma. There have been no fevers. There is some moderate swelling of the left MCP joint of the thumb. 2. He reports that he was recently diagnosed with a fatty liver on ultrasound. He feels that when he takes a deep breath his lungs hit his liver and cause brief shooting pain. He denies fevers, cough or congestion. No melena hematochezia. No hematuria no changes in urinary habits. He is concerned that he may be wasting tax pair money and is sometimes resistant to suggestions that I have made for further evaluation and care here in the emergency department Review of Systems Constitutional: reports: Reviewed and negative Cardiac: denies: Chest pain / pressure, Palpitations, Pedal edema Respiratory: denies: Dyspnea, Cough GI: reports: Abdominal Pain, Nausea, Vomiting : reports: Reviewed and negative Musculoskeletal: reports: Joint pain Neurologic: reports: Reviewed and negative Psychiatric: reports: Reviewed and negative Endocrine: reports: Reviewed and negative PD PAST MEDICAL HISTORY - Past Medical History Cardiovascular: Hypertension, High cholesterol Respiratory: None Neuro: None Endocrine/Autoimmune: Type 2 diabetes GI: GERD : None HEENT: Chronic vision loss Psych: Depression, Anxiety, Claustrophobia Musculoskeletal: Osteoarthritis, Gout, Chronic back pain Derm: None - Past Surgical History Past Surgical History: Yes Ortho: Rotator cuff repair, Spine surgery - Present Medications Home Medications: Ambulatory Orders Medication Instructions Recorded Confirmed metFORMIN [Glucophage] 500 mg PO DAILY 06/09/18 12/29/20 Amlodipine Besylate [Norvasc] 10 mg PO DAILY 05/05/20 12/29/20 Atorvastatin [Lipitor] 20 mg PO QPM 05/05/20 12/29/20 Gabapentin [Neurontin] 600 mg PO HS 05/05/20 12/29/20 Losartan [Cozaar] 50 mg PO DAILY 05/05/20 12/29/20 Metoprolol Tartrate [Lopressor] 25 mg PO DAILY 05/05/20 12/29/20 Omeprazole 40 mg PO DAILY 05/05/20 12/29/20 Colchicine 0.6 mg PO DAILY 12/29/20 12/29/20 Oxycodone HCl/Acetaminophen 1 - 2 each PO Q6H PRN #14 tablet 12/29/20 [Percocet 5-325 mg Tablet] predniSONE [Deltasone] 20 mg PO [id number] #21 tab 12/29/20 tiZANidine [Zanaflex] 4 mg PO Q8H PRN #15 tablet 12/29/20 predniSONE [Deltasone] 40 mg PO DAILY 5 Days #10 tablet 07/14/21 - Allergies Allergies/Adverse Reactions: Allergies Allergy/AdvReac Type Severity Reaction Status Date / Time No Known Drug Allergies Allergy Verified 07/14/21 11:19 - Social History Does the pt smoke?: Yes Smoking Status: Current every day smoker Does the pt drink ETOH?: Yes Does the pt have substance abuse?: No - Immunizations Immunizations are current?: Yes Immunizations: TDAP current <10years - POLST Patient has POLST: No PD ED PE NORMAL - General General: Alert and oriented X 3, No acute distress, Well developed/nourished - HEENT HEENT: Atraumatic, Ears normal - Neck Neck: Supple, no meningeal sign, No adenopathy - Cardiac Cardiac: RRR, No murmur, No gallop - Respiratory Respiratory: No respiratory distress, Clear bilaterally - Abdomen Abdomen: Soft, Non tender, Other (No tenderness elicited with palpation of the anterior abdomen. negative murphys. liver approx 3 cm below RCM) - Derm Derm: Normal color, Warm and dry, No rash - Extremities Extremities: No deformity, No tenderness to palpate, Other (tenderness at MCP of left thumb. NO erythema. no deformity) Results - Vitals Vitals: Vital Signs - 24 hr 07/14/21 07/14/21 11:19 11:21 Temperature 36.4 C L 36.4 C L Heart Rate 105 H 105 H Respiratory 18 18 Rate Blood Pressure 125/82 H 125/82 H O2 Saturation 99 96 Oxygen O2 Source Room air - Rads (name of study) CXR Radiology: EMP read indepedently (No acute process or findings) PD MEDICAL DECISION MAKING - ED course Complexity details: reviewed results, re-evaluated patient, considered differential, d/w patient ED course: 55-year-old male presents emergency department for evaluation of left thumb pain that he feels is consistent with a gout flare though note previously in his left thumb. He declined x-ray imaging of the hand. He is also increasing pain in his lower feet which he says is his gout. Despite colchicine he is in a flare. He is declining lab work today as he knows that it was recently normal in May. He has also been reporting some pain in his liver when he takes deep breaths. He is concerned that his fatty liver is causing this pain. He knows that he is to see a death surveys coder in follow-up. I offered the patient a 5-day course of prednisone for the treatment of gout and he is upset that he is not being prescribed muscle relaxers as well as narcotics. We discussed that an initial first step is typically a course of steroids and that if his symptoms were not markedly better he could return to the emergency department. In December patient was treated for low back pain with a course of steroids, a muscle relaxer and narcotics. However the patient's visit today is not related to his chronic low back pain which he states is no different than usual. He is leaving here quite upset Departure - Departure Disposition: 01 Home, Self Care Clinical Impression: Gout attack Qualifiers: Gout site: unspecified site Gout etiology: unspecified cause Qualified Code(s): M10.9 - Gout, unspecified Prescriptions: predniSONE [Deltasone] 40 mg PO DAILY 5 Days #10 tablet Comments: Celestino rivera are seen today in the emergency department for increased pain in the thumb of your left hand as well as your feet. You feel that this is typical of your gout flare. Please continue your colchicine. An initial appropriate way to manage gout is by starting you on a 5-day course of steroids. I have sent a prescription for prednisone to the pharmacy. If you find that prednisone is not working to control your pain you can return to the emergency department. Your chest x-ray today did not show any worrisome findings. Typically liver enlargement in the setting of fatty liver does not cause pain. It is important that you continue to follow-up with your primary care doctor for referral to a death surveys coder.
--- NOTE | 2021-07-14 12:17 | XRAY Report ---
PROCEDURE: Chest 1 View X-Ray INDICATIONS: chest pain TECHNIQUE: One view of the chest was acquired. COMPARISON: January 01, 2019 FINDINGS: SUPPORT DEVICES: Anterior cervical fixation hardware is noted. LUNGS/PLEURA: No focal consolidation, pleural effusion or space-occupying pneumothorax. MEDIASTINUM: The cardiomediastinal silhouette is within normal limits. BONES/SOFT TISSUES: No acute abnormality. IMPRESSION: 1.No acute cardiopulmonary abnormality. Reviewed by: Dom Armstrong MD on 07/14/2021 12:15 PM PDT Approved by: Dom Armstrong MD on 07/14/2021 12:15 PM PDT Station ID: [id number]
[2021-07-14] MEDS ORDERED: oxyCODONE 5 MG TABLET PO STA (12:21)
[2021-07-14 12:55] VITALS: BP 111/67
== END 2021-07-14 12:56 | disposition home or self-care (01) ==
LOC: ED 11:14
DX: M10.9 Gout, unspecified (principal); F17.200 Nicotine dependence, unspecified, uncomplicated
CPT/HCPCS: 71045; 96372; 99283; A9270

== ENCOUNTER 2022-11-12 14:08 | Outpatient (CLI) | payer MEDICARE, MEDICAID ==
--- NOTE | 2022-11-18 08:54 | XRAY Report ---
PROCEDURE: Abdomen 1 View X-Ray INDICATIONS: DISTAL URETERAL CALCULUS,RIGHT TECHNIQUE: One view of the abdomen acquired. COMPARISON: None. FINDINGS: Surgical changes and devices: None. Bowel: Bowel gas pattern is normal. Soft tissues: No suspicious abdominal calcifications. Visualized solid organ contours appear normal in size. Bones: No suspicious bony lesions. IMPRESSION: No acute abdominal pathology. No distal ureter calculus identified. Reviewed by: Shamir Batres on 11/18/2022 8:53 AM PDT Approved by: Shamir Batres on 11/18/2022 8:53 AM PDT Station ID: [id number]
== END 2022-11-12 14:09 | disposition home or self-care (01) ==
LOC: DI 14:08
PROVIDERS: ATTEND Internal Medicine
DX: N20.1 Calculus of ureter (principal)

== ENCOUNTER 2022-11-22 17:20 | Outpatient (CLI) | payer MEDICARE, MEDICAID ==
[2022-11-22 17:52] LABS: BASOPHILS % (AUTO) 0.5 %; EOSINOPHILS # (AUTO) 0.1 10^3/uL (0.0-0.7); EOSINOPHILS % (AUTO) 1.2 %; HCT - HEMATOCRIT 34.7 % (42.0-52.0); HGB - HEMOGLOBIN 11.8 g/dL (14.0-18.0); LYMPHOCYTES # (AUTO) 1.5 10^3/uL (1.5-3.5); LYMPHOCYTES % (AUTO) 17.6 %; MEAN CORPUSCULAR HEMOGLOBIN 31.6 pg (27.0-31.0); MEAN CORPUSCULAR VOLUME 92.8 fL (80.0-94.0); MEAN PLATELET VOLUME 10.1 fL (7.4-11.4); MONOCYTES # (AUTO) 0.7 10^3/uL (0.0-1.0); MONOCYTES % (AUTO) 8.2 %; NEUTROPHILS % (AUTO) 72.3 %; PLT - PLATELET COUNT 165 10^3/uL (130-450); RED BLOOD COUNT 3.74 10^6/uL (4.70-6.10); RED CELL DISTRIBUTION WIDTH 12.9 % (12.0-15.0); WHITE BLOOD COUNT 8.3 x10^3/uL (4.8-10.8)
[2022-11-22 17:59] LABS: CREATININE,URINE 256.1 mg/dL; MICROALBUM/CREATININE RATIO,UR 21.1 ug/mg (<30.0); MICROALBUMIN,URINE 5.4 mg/dL
[2022-11-22 18:00] LABS: ALBUMIN 4.6 g/dL (3.2-5.5); ALBUMIN/GLOBULIN RATIO 1.8 (1.0-2.2); ALKALINE PHOSPHATASE 92 IU/L (42-121); ALT ALANINE AMINOTRANSFERASE 13 IU/L (10-60); AST ASPARTATE AMINOTRANSFERASE 26 IU/L (10-42); BILIRUBIN,TOTAL 0.8 mg/dL (0.2-1.0); BUN - BLOOD UREA NITROGEN 21 mg/dL (6-20); CALCIUM 9.5 mg/dL (8.5-10.3); CARBON DIOXIDE - CO2 23 mmol/L (21-32); CHLORIDE 106 mmol/L (101-111); CHOL/HDL RATIO 2.3 (<5.0); CHOLESTEROL 115 mg/dL; CREATININE 1.5 mg/dL (0.6-1.3); GFR - MDRD 48 (>89); GLUCOSE 141 mg/dL (74-104); HDL CHOLESTEROL 50 mg/dL; LDL CHOLESTEROL,CALCULATED 11 mg/dL; LDL/HDL RATIO 0.2 (<3.6); POTASSIUM 3.6 mmol/L (3.5-4.5); SODIUM 140 mmol/L (135-145); TOTAL PROTEIN 7.1 g/dL (6.4-8.9); TRIGLYCERIDES 271 mg/dL (48-352); URIC ACID 4.6 mg/dL (4.4-7.6); VLDL CHOLESTEROL 54 mg/dL
[2022-11-22 18:15] LABS: THYROID STIMULATING HORMONE 4.32 uIU/mL (0.34-5.60)
[2022-11-22 22:03] LABS: ESTIMATED AVERAGE GLUCOSE 97 mg/dL (70-100)
== END 2022-11-22 17:21 | disposition home or self-care (01) ==
LOC: LAB 17:20
PROVIDERS: ATTEND Internal Medicine
DX: E11.9 Type 2 diabetes mellitus without complications (principal); Z12.5 Encounter for screening for malignant neoplasm of prostate; E78.1 Pure hyperglyceridemia; K70.0 Alcoholic fatty liver; R00.2 Palpitations
CPT/HCPCS: 36415; 80053; 80061; 82043; 82105; 82570; 83036; 84443; 84550; 85025; G0103; 83721; 84153

== ENCOUNTER 2022-11-23 19:17 | Emergency (ER) | payer MEDICARE, MEDICAID ==
[2022-11-23 19:37] VITALS: BP 130/72; O2SAT 99
[2022-11-23] MEDS ORDERED: predniSONE 20 MG TABLET PO STA (20:30)
[2022-11-23] MEDS ORDERED: KETOROLAC 60 MG/2 ML VIAL IM STA (20:30)
[2022-11-23] MEDS ORDERED: oxyCODONE 5 MG TABLET PO STA (20:34)
--- NOTE | 2022-11-23 20:42 | ED Physician Documentation ---
History of Present Illness - Stated complaint Stated Complaint: LT HAND PX - Chief complaint Chief Complaint: Ext Problem - History obtained from History obtained from: Patient - History of Present Illness Timing: How many days ago (2) Pain level max: 9 Pain level now: 9 - Additonal information Additional information: 56-year-old male presents to the emergency department stating he has gout in his left wrist. This has been a chronic ongoing issue for the patient he is on colchicine and allopurinol at home. Increasing pain today. Worse with movement, better with rest. No fevers. No chills. No trauma. Review of Systems Constitutional: denies: Fever GI: denies: Vomiting, Diarrhea : denies: Dysuria, Frequency, Hesitancy Skin: denies: Rash Musculoskeletal: denies: Neck pain, Back pain Neurologic: denies: Headache PD PAST MEDICAL HISTORY - Past Medical History Cardiovascular: Hypertension, High cholesterol Respiratory: None Neuro: None Endocrine/Autoimmune: Type 2 diabetes GI: GERD : None HEENT: Chronic vision loss Psych: Depression, Anxiety, Claustrophobia Musculoskeletal: Osteoarthritis, Gout, Chronic back pain Derm: None - Past Surgical History Past Surgical History: Yes Ortho: Rotator cuff repair, Spine surgery - Present Medications Home Medications: Ambulatory Orders Medication Instructions Recorded Confirmed metFORMIN [Glucophage] 500 mg PO DAILY 06/09/18 07/14/21 Amlodipine Besylate [Norvasc] 10 mg PO DAILY 05/05/20 07/14/21 Atorvastatin [Lipitor] 20 mg PO QPM 05/05/20 07/14/21 Gabapentin [Neurontin] 600 mg PO HS 05/05/20 07/14/21 Losartan [Cozaar] 50 mg PO DAILY 05/05/20 07/14/21 Metoprolol Tartrate [Lopressor] 25 mg PO DAILY 05/05/20 07/14/21 Omeprazole 40 mg PO DAILY 05/05/20 07/14/21 Colchicine 0.6 mg PO DAILY 12/29/20 07/14/21 Ketorolac [Toradol] 10 mg PO Q6H PRN #20 tablet 11/23/22 Oxycodone HCl/Acetaminophen 1 - 2 each PO Q6H PRN #14 tablet 11/23/22 [Percocet 5-325 mg Tablet] MDD 6 tabs predniSONE [Deltasone] 10 mg PO [id number] #42 tab 11/23/22 - Allergies Allergies/Adverse Reactions: Allergies Allergy/AdvReac Type Severity Reaction Status Date / Time No Known Drug Allergies Allergy Verified 11/23/22 19:28 - Social History Does the pt smoke?: Yes Smoking Status: Current every day smoker Does the pt drink ETOH?: Yes Does the pt have substance abuse?: No - Immunizations Immunizations are current?: Yes Immunizations: TDAP current <10years - POLST Patient has POLST: No PD ED PE NORMAL - Vitals Vital signs reviewed: Yes - General General: Alert and oriented X 3, No acute distress - HEENT HEENT: Moist mucous membranes - Neck Neck: Supple, no meningeal sign - Cardiac Cardiac: RRR, Strong equal pulses - Respiratory Respiratory: No respiratory distress, Clear bilaterally - Abdomen Abdomen: Soft, Non tender, Non distended - Derm Derm: Warm and dry - Extremities Extremities: Other (L wrist - Mild erythema and swelling to the radial aspect of the wrist. No snuffbox tenderness. Neurovascular intact.) - Neuro Neuro: Alert and oriented X 3 - Psych Psych: Normal mood, Normal affect Results - Vitals Vitals: Vital Signs - 24 hr 11/23/22 19:24 Temperature 37.0 C Heart Rate 109 H Respiratory 19 Rate Blood Pressure 130/72 O2 Saturation 99 Oxygen O2 Source Room air PD Medical Decision Making - ED course Complexity details: considered differential, d/w patient ED course: Patient with what appears to be gouty arthritis of the left wrist. Consistent with her prior history. Will place on pain medication, prednisone for home. Already on colchicine and allopurinol. No evidence of septic joint. No indication for x-ray. Patient counseled regarding signs and symptoms for which I believe and urgent re-evaluation would be necessary. Patient with good understanding of and agreement to plan and is comfortable going home at this time This document was made in part using voice recognition software. While efforts are made to proofread this document, sound alike and grammatical errors may occur. Departure - Departure Disposition: 01 Home, Self Care Clinical Impression: Gout attack Qualifiers: Gout site: wrist Gout etiology: unspecified cause Laterality: left Qualified Code(s): M10.9 - Gout, unspecified Condition: Good Instructions: ED Arthritis Gout Follow-Up: Mario Felipe MD [Primary Care Provider] - Within 1 week Prescriptions: predniSONE [Deltasone] 10 mg PO [id number] #42 tab Oxycodone HCl/Acetaminophen [Percocet 5-325 mg Tablet] 1 - 2 each PO Q6H PRN #14 tablet MDD 6 tabs PRN Reason: pain Ketorolac [Toradol] 10 mg PO Q6H PRN #20 tablet PRN Reason: back pain Comments: Your prescriptions were sent to [facility] in [place]. Please follow-up with your doctor for further care. Please return if you worsen. The steroids to decrease the swelling and inflammation in your joint quickly. Please make sure you are drinking plenty of water at home. I am prescribing a short course of narcotic pain medication for you. These are potentially dangerous and addictive medications that should be used carefully. These medications may constipate you. Take an unyo-mgn-uiruwaw stool softener (docusate) twice daily with plenty of water while taking these medications. If you go 24 hours without a bowel movement, take hkor-rfu-tedqimb miralax, per package instructions. Do not drink or drive while taking these medications. If you received narcotic or sedating medications while in the emergency department, do not drive for 24 hours. Store this medication in a safe, secure place and out of reach of children. It is a violation of federal law to give or sell this medication to another person or to use in a manner other than prescribed. The ED will not refill narcotic prescriptions, including prescriptions lost or stolen. To dispose of unwanted medications: 1. [facility] at [address] in [place] has a medication drop box. They accept prescription medications (in pill form) Tuesday through Tuesday 9:00 a.m. to 5:00 p.m. 2. [facility] accepts prescription medications (in pill form only) for disposal year round. Call for more information. 3. Contact the [facility] for the next [facility] sponsored prescription drug collection event. , [phone], or [phone]; Forms: PCP List Discharge Date/Time: 11/23/22 21:36
== END 2022-11-23 21:36 | disposition home or self-care (01) ==
LOC: ED 19:17
DX: M10.9 Gout, unspecified (principal); I10 Essential (primary) hypertension; E11.9 Type 2 diabetes mellitus without complications; Z79.84 Long term (current) use of oral hypoglycemic drugs; F17.200 Nicotine dependence, unspecified, uncomplicated
CPT/HCPCS: 96372; 99283; A9270; J7512

== ENCOUNTER 2023-03-05 06:09 | Emergency (ER) | payer MEDICARE, MEDICAID ==
[2023-03-05 06:21] VITALS: BP 123/77; O2SAT 97
[2023-03-05] MEDS ORDERED: oxyCODONE 5 MG TABLET PO STA (07:49)
[2023-03-05] MEDS ORDERED: predniSONE 20 MG TABLET PO STA (07:49)
[2023-03-05] MEDS ORDERED: KETOROLAC 30 MG/ML VIAL IM STA (07:53)
--- NOTE | 2023-03-05 07:55 | ED Physician Documentation ---
History of Present Illness - Stated complaint Stated Complaint: RT HAND PX - Chief complaint Chief Complaint: Ext Problem - History obtained from History obtained from: Patient - Additonal information Additional information: Patient is a 57-year-old male with a history of gout presenting for what he feels is a flareup of gout in his right wrist. Patient reports symptoms started 5 days ago. He does take allopurinol and colchicine. He reports he stopped drinking 8 days ago. Denies any other known exacerbating factors. Denies any history of trauma. Reports has similar history of pain in the wrist related to gout attacks. Denies fever. Review of Systems Constitutional: denies: Fever Cardiac: denies: Chest pain / pressure Respiratory: denies: Dyspnea Musculoskeletal: reports: Joint pain PD PAST MEDICAL HISTORY - Past Medical History Cardiovascular: Hypertension, High cholesterol Respiratory: None Neuro: None Endocrine/Autoimmune: Type 2 diabetes GI: GERD : None HEENT: Chronic vision loss Psych: Depression, Anxiety, Claustrophobia Musculoskeletal: Osteoarthritis, Gout, Chronic back pain Derm: None - Past Surgical History Past Surgical History: Yes Ortho: Rotator cuff repair, Spine surgery - Present Medications Home Medications: Ambulatory Orders Medication Instructions Recorded Confirmed metFORMIN [Glucophage] 500 mg PO DAILY 06/09/18 03/05/23 Amlodipine Besylate [Norvasc] 10 mg PO DAILY 05/05/20 03/05/23 Atorvastatin [Lipitor] 20 mg PO QPM 05/05/20 03/05/23 Gabapentin [Neurontin] 600 mg PO HS 05/05/20 03/05/23 Losartan [Cozaar] 50 mg PO DAILY 05/05/20 03/05/23 Metoprolol Tartrate [Lopressor] 25 mg PO DAILY 05/05/20 03/05/23 Omeprazole 40 mg PO DAILY 05/05/20 03/05/23 Colchicine 0.6 mg PO DAILY 12/29/20 03/05/23 Amitriptyline [Elavil] 1 tab PO DAILY 03/05/23 03/05/23 Oxycodone HCl/Acetaminophen 1 each PO Q6H PRN #14 tablet 03/05/23 [Percocet 5-325 mg Tablet] allopurinoL [Allopurinol] 1 tab PO DAILY 03/05/23 03/05/23 predniSONE [Deltasone] 20 mg PO [id number] #21 tab 03/05/23 - Allergies Allergies/Adverse Reactions: Allergies Allergy/AdvReac Type Severity Reaction Status Date / Time No Known Drug Allergies Allergy Verified 03/05/23 06:21 - Social History Does the pt smoke?: Yes Smoking Status: Current every day smoker Does the pt drink ETOH?: Yes Does the pt have substance abuse?: No - Immunizations Immunizations are current?: Yes Immunizations: TDAP current <10years - POLST Patient has POLST: No PD ED PE NORMAL - General General: Alert and oriented X 3, No acute distress, Well developed/nourished - HEENT HEENT: Atraumatic - Neck Neck: Supple, no meningeal sign - Cardiac Cardiac: Strong equal pulses - Respiratory Respiratory: No respiratory distress - Derm Derm: Normal color, Warm and dry, No rash - Extremities Extremities: Other (Tenderness over right Wrist even with light touch with pain noted on range of motion, no significant swelling, no overlying erythema, no warmth, normal range of motion of digits and at elbow) Results - Vitals Vitals: Vital Signs - 24 hr 03/05/23 06:16 Temperature 35.7 C L Heart Rate 85 Respiratory 18 Rate Blood Pressure 123/77 O2 Saturation 97 Oxygen O2 Source Room air PD Medical Decision Making - ED course ED course: Patient presenting for evaluation of right wrist pain. Has a history of gout and has had similar episodes in this joint. Patient denies trauma. Neurovascularly intact. No findings to suggest a septic joint. Patient is already on allopurinol and colchicine. Reports responding well to steroids in the past. Will trial a course of steroids along with pain medication. Patient counseled to avoid any known triggers such as alcohol. Patient counseled on need for follow-up as well as concerning symptoms to return for. Departure - Departure Disposition: 01 Home, Self Care Clinical Impression: Gout of right wrist Condition: Stable Instructions: ED Arthritis Gout, ED Diet Gout Prescriptions: predniSONE [Deltasone] 20 mg PO [id number] #21 tab Oxycodone HCl/Acetaminophen [Percocet 5-325 mg Tablet] 1 each PO Q6H PRN #14 tablet PRN Reason: pain Comments: You are being treated for another flareup of gout in your right wrist. Have sent prescriptions to [facility] in [place]. Please follow-up with your primary care provider. Please avoid eating or drinking anything that could exacerbate your gout symptoms. I am prescribing a short course of narcotic pain medication for you. These are potentially dangerous and addictive medications that should be used carefully. These medications may constipate you. Take an yrgh-btp-sgohsul stool softener (docusate) twice daily with plenty of water while taking these medications. If you go 24 hours without a bowel movement, take xpck-des-eafcjgo miralax, per package instructions. Do not drink or drive while taking these medications. If you received narcotic or sedating medications while in the emergency department, do not drive for 24 hours. Store this medication in a safe, secure place and out of reach of children. It is a violation of federal law to give or sell this medication to another person or to use in a manner other than prescribed. The ED will not refill narcotic prescriptions, including prescriptions lost or stolen. To dispose of unwanted medications: 1. [facility] at [address] in [place] has a medication drop box. They accept prescription medications (in pill form) Tuesday through Tuesday 9:00 a.m. to 5:00 p.m. 2. The [facility] accepts prescription medications (in pill form only) for disposal year round. Call for more information. 3. Contact the [facility] for the next [facility] sponsored prescription drug collection event. , [phone], or [phone]; Note that many narcotic pain relievers also contain Tylenol/acetaminophen. Please ensure that your total dose of acetaminophen from all sources does not exceed 3 g (3000 mg) per day. Forms: PCP List Discharge Date/Time: 03/05/23 08:26
== END 2023-03-05 08:26 | disposition home or self-care (01) ==
LOC: ED 06:09
DX: M10.9 Gout, unspecified (principal); F17.200 Nicotine dependence, unspecified, uncomplicated
CPT/HCPCS: 96372; 99283; A9270; J7512

== ENCOUNTER 2023-07-25 20:58 | Outpatient (CLI) | payer MEDICARE, MEDICAID ==
--- NOTE | 2023-07-26 10:40 | Ultrasound Report ---
PROCEDURE: Abdomen Complete INDICATIONS: FATTY LIVER TECHNIQUE: Real-time scanning was performed of the abdominal and retroperitoneal organs, with image documentatio n. COMPARISON: 05/20/2021 FINDINGS: Liver: Liver measures 18 cm. Overall echogenic appearance. Main portal vein is hepatopedal Gallbladder: Possible 5 x 7 mm polyp. No focal tenderness. Biliary ducts: Intrahepatic bile ducts are non-dilated. Extrahepatic bile duct caliber measures 2 m m. Normal is 6-7 mm or less in diameter, or 10 mm or less post-cholecystectomy. Pancreas: Visualized portions of the pancreas are sonographically normal. Spleen: Spleen is normal in size and homogeneous in echotexture. Kidneys: Kidneys are normal in size and echotexture. Right kidney measures 10 cm long; left kidney measures 10 cm long. No hydronephrosis or nephrolithiasis. No solid masses. No complex renal cystic lesions which require follow-up. Aorta: Visualized aorta is normal in caliber at less than 3 cm. Iliacs: Proximal common iliac arteries are normal in caliber at less than 2.5 cm. IVC: Intrahepatic inferior vena cava is patent. Miscellaneous: No free abdominal fluid. IMPRESSION: Hepatomegaly and increased echotexture, nonspecific, usually due to steatosis. 5 x 7 mm gallbladder polyp. Consider 12 month sonographic follow-up per SRU guidelines. Reviewed by: Scott Roberson MD on 07/26/2023 10:38 AM PDT Approved by: Scott Roberson MD on 07/26/2023 10:38 AM PDT Station ID: [id number]
== END 2023-07-25 20:59 | disposition home or self-care (01) ==
LOC: DI 20:58
PROVIDERS: ATTEND Internal Medicine
DX: K70.0 Alcoholic fatty liver (principal); K82.4 Cholesterolosis of gallbladder